=== PATIENT | female | born 1995 | race Hispanic/Latino ===

== ENCOUNTER 2018-08-09 09:27 | Emergency (ER) | payer BC, MEDICAID ==
--- NOTE | 2018-08-09 10:53 | Emergency Department Report ---
ED General Adult HPI - General Chief complaint: Syncope Stated complaint: SYNCOPE x3 Time Seen by Provider: 08/09/18 09:56 Source: patient Mode of arrival: Ambulatory Limitations: No Limitations - History of Present Illness Initial comments: Patient presents to the emergency department after having a syncopal episode. Patient states that she recently had a baby 8 weeks ago and has not been taking care of herself as needed especially when it comes to eating and drinking. Patient states she's had syncopal episodes in the past. Patient denies chest pain prior to or after her syncopal episodes. Patient was chest pain, shortness breath, or headache. -: Sudden Severity scale (0 -10): 0 Consistency: now resolved Improves with: none Worsens with: none Associated Symptoms: denies other symptoms Treatments Prior to Arrival: none - Related Data Home Medications Medication Instructions Recorded Confirmed Last Taken Tablet 1 tab PO DAILY 09/30/14 11/01/14 10/04/14 10:30 1 tab Previous Rx's Medication Instructions Recorded Last Taken Type Ferrous Sulfate [Feosol 325 MG tab] 325 mg PO BID #60 tablet 11/03/14 Unknown Rx Ibuprofen [Motrin 800 MG tab] 800 mg PO Q6H PRN #30 tablet 11/03/14 Unknown Rx Allergies Allergy/AdvReac Type Severity Reaction Status Date / Time No Known Allergies Allergy Verified 07/29/14 11:30 ED Review of Systems ROS: Stated complaint: SYNCOPE x3 Other details as noted in HPI Comment: All other systems reviewed and negative Constitutional: denies: chills, fever Eyes: denies: eye pain, eye discharge, vision change ENT: denies: ear pain, throat pain Respiratory: denies: cough, shortness of breath, wheezing Cardiovascular: denies: chest pain, palpitations Endocrine: no symptoms reported Gastrointestinal: denies: abdominal pain, nausea, diarrhea Genitourinary: denies: urgency, dysuria, discharge Musculoskeletal: denies: back pain, joint swelling, arthralgia Skin: denies: rash, lesions Neurological: denies: headache, weakness, paresthesias Psychiatric: denies: anxiety, depression Hematological/Lymphatic: denies: easy bleeding, easy bruising ED Past Medical Hx - Past Medical History Hx Hypertension: No Hx Heart Attack/AMI: No Hx Congestive Heart Failure: No Hx Diabetes: No Hx Deep Vein Thrombosis: No Hx Renal Disease: No Hx Sickle Cell Disease: No Hx Seizures: No Hx Asthma: No Hx COPD: No Hx HIV: No - Surgical History Past Surgical History?: No - Social History Smoking Status: Never Smoker Substance Use Type: None - Medications Home Medications: Home Medications Medication Instructions Recorded Confirmed Last Taken Type Tablet 1 tab PO DAILY 09/30/14 11/01/14 10/04/14 10:30 History 1 tab Ferrous Sulfate [Feosol 325 MG tab] 325 mg PO BID #60 tablet 11/03/14 Unknown Rx Ibuprofen [Motrin 800 MG tab] 800 mg PO Q6H PRN #30 tablet 11/03/14 Unknown Rx ED Physical Exam - General Limitations: No Limitations General appearance: alert, in no apparent distress - Head Head exam: Present: atraumatic, normocephalic - Eye Eye exam: Present: normal appearance, PERRL, EOMI - ENT ENT exam: Present: mucous membranes dry - Neck Neck exam: Present: normal inspection - Respiratory Respiratory exam: Present: normal lung sounds bilaterally. Absent: respiratory distress, wheezes, rales, rhonchi - Cardiovascular Cardiovascular Exam: Present: regular rate, normal rhythm. Absent: systolic murmur, diastolic murmur, rubs, gallop - GI/Abdominal GI/Abdominal exam: Present: soft, normal bowel sounds. Absent: distended, tenderness - Extremities Exam Extremities exam: Present: normal inspection - Back Exam Back exam: Present: normal inspection - Neurological Exam Neurological exam: Present: alert, oriented X3, CN II-XII intact. Absent: motor sensory deficit - Psychiatric Psychiatric exam: Present: normal affect, normal mood - Skin Skin exam: Present: warm, dry, intact, normal color. Absent: rash ED Course Vital Signs 08/09/18 08/09/18 09:31 13:07 Temperature 98.5 F Pulse Rate 63 81 Respiratory 16 16 Rate Blood Pressure 119/83 126/74 [Left] O2 Sat by Pulse 100 96 Oximetry ED Medical Decision Making - Lab Data Result diagrams: 08/09/18 10:45 08/09/18 10:45 Lab Results 08/09/18 08/09/18 08/09/18 Range/Units 10:45 10:45 10:45 WBC 7.2 (4.5-11.0) K/mm3 RBC 4.76 (3.65-5.03) M/mm3 Hgb 12.5 (10.1-14.3) gm/dl Hct 37.7 (30.3-42.9) % MCV 79 (79-97) fl MCH 26 L (28-32) pg MCHC 33 (30-34) % RDW 20.7 H (13.2-15.2) % Plt Count 273 (140-440) K/mm3 Lymph % (Auto) 25.5 (13.4-35.0) % [place] % (Auto) 8.5 H (0.0-7.3) % Eos % (Auto) 1.9 (0.0-4.3) % Baso % (Auto) 0.6 (0.0-1.8) % Lymph # 1.8 (1.2-5.4) K/mm3 [place] # 0.6 (0.0-0.8) K/mm3 Eos # 0.1 (0.0-0.4) K/mm3 Baso # 0.0 (0.0-0.1) K/mm3 Seg Neutrophils % 63.5 (40.0-70.0) % Seg Neutrophils # 4.6 (1.8-7.7) K/mm3 Sodium 142 (137-145) mmol/L Potassium 4.5 (3.6-5.0) mmol/L Chloride 106.5 (98-107) mmol/L Carbon Dioxide 26 (22-30) mmol/L Anion Gap 14 mmol/L BUN 7 (7-17) mg/dL Creatinine 0.9 (0.7-1.2) mg/dL Estimated GFR > 60 ml/min BUN/Creatinine Ratio 8 % Glucose 88 (65-100) mg/dL Calcium 9.2 (8.4-10.2) mg/dL Total Bilirubin 0.60 (0.1-1.2) mg/dL AST 13 (5-40) units/L ALT 13 (7-56) units/L Alkaline Phosphatase 80 (35-129) units/L Total Protein 7.0 (6.3-8.2) g/dL Albumin 4.2 (3.9-5) g/dL Albumin/Globulin Ratio 1.5 % HCG, Qual Negative (Negative) - EKG Data -: EKG Interpreted by [place] EKG shows normal: sinus rhythm Rate: normal - Radiology Data Radiology results: report reviewed - Medical Decision Making Discussed results with the patient and his spouse Urinalysis discussed and the patient politely declined Critical care attestation.: If time is entered above; I have spent that time in minutes in the direct care of this critically ill patient, excluding procedure time. ED Disposition Clinical Impression: Syncope Disposition: DC-01 TO HOME OR SELFCARE Is pt being admited?: No Does the pt Need Aspirin: No Condition: Stable Instructions: Syncope (ED) Additional Instructions: return if worse Referrals: ELISE VÁSQUEZ MD [Primary Care Provider] - 3-5 Days [facility] [Provider Group] - 3-5 Days [facility] [Provider Group] - 3-5 Days [facility] [Outside] - 3-5 Days Time of Disposition: 13:21
[2018-08-09 10:56] LABS: Basophils % (Auto) 0.6 % (0.0-1.8); Eosinophils # (Auto) 0.1 K/mm3 (0.0-0.4); Eosinophils % (Auto) 1.9 % (0.0-4.3); Hematocrit 37.7 % (30.3-42.9); Hemoglobin 12.5 gm/dl (10.1-14.3); Lymphocytes # (Auto) 1.8 K/mm3 (1.2-5.4); Lymphocytes % (Auto) 25.5 % (13.4-35.0); Mean Corpuscular HGB Conc 33 % (30-34); Mean Corpuscular Volume 79 fl (79-97); Monocytes # (Auto) 0.6 K/mm3 (0.0-0.8); Monocytes % (Auto) 8.5 % (0.0-7.3); Platelet Count 273 K/mm3 (140-440); Red Blood Count 4.76 M/mm3 (3.65-5.03); Red Cell Distribution Width 20.7 % (13.2-15.2)
[2018-08-09 11:19] LABS: Alanine Aminotransferase 13 units/L (7-56); Albumin 4.2 g/dL (3.9-5); BUN/Creatinine Ratio 8; Blood Urea Nitrogen 7 mg/dL (7-17); Calcium 9.2 mg/dL (8.4-10.2); Hemolysis Index 4
--- NOTE | 2018-08-09 12:02 | XRay Report ---
AP CHEST :08/09/18 09:27:00 CLINICAL: Syncope COMPARISON:None. FINDINGS: Normal heart and pulmonary vasculature. The lungs are normally expanded and clear. The bones and soft tissues are normal. IMPRESSION: Normal chest.
--- NOTE | 2018-08-09 12:34 | Cat Scan Report ---
PROCEDURE: CT HEAD/BRAIN WO CON TECHNIQUE: A noncontrast CT of the head was performed. HISTORY: syncope COMPARISON: None FINDINGS: There is no acute intracranial hemorrhage. There is no brain edema, mass effect or midline shift. Ventricular size is appropriate for brain volume. There is no abnormal extra-axial fluid collections. There is no skull fracture seen. The visualized paranasal sinuses are clear. IMPRESSION: There is no acute intracranial abnormality seen. This document is electronically signed by Ioana Gamble MD., August 09 2018 12:32:13 PM ET
[2018-08-09] MEDS ORDERED: NACL 0.9% 1000 ML 1,000 ML IV ONE (12:54)
[2018-08-09 13:07] VITALS: BP 126/74
== END 2018-08-09 14:06 | disposition home or self-care (01) ==
LOC: ED 09:27
DX: R55 Syncope and collapse (principal)
CPT/HCPCS: 36415; 70450; 71045; 80053; 84703; 85025; 93005; 93010; 96360; 99284; J7030

== ENCOUNTER 2018-08-21 13:43 | Emergency (ER) | payer MEDICAID ==
--- NOTE | 2018-08-21 14:15 | Emergency Department Report ---
Chief Complaint: Psych Stated Complaint: EVAL Time Seen by Provider: 08/21/18 14:12 - HPI History of Present Illness: pt presents for medical clearance has plan to go to [facility] denies SI, HI no hallucinations hx of depression (+) alcohol use, states at times she drinks a 12 pack of beer in sitting last drank ETOH last night (+) cigarettes (+) cocaine last used 5 days ago, marijuana 2 days ago PMHx of anemia, panic attacks, PTSD, bipolar MSE screening note: Focused history performed. Due to findings the following was ordered: psych protocol ED Disposition for MSE Condition: Stable
[2018-08-21 14:43] LABS: Basophils % (Auto) 0.5 % (0.0-1.8); Eosinophils # (Auto) 0.1 K/mm3 (0.0-0.4); Eosinophils % (Auto) 2.2 % (0.0-4.3); Hematocrit 40.8 % (30.3-42.9); Hemoglobin 13.7 gm/dl (10.1-14.3); Lymphocytes # (Auto) 1.7 K/mm3 (1.2-5.4); Lymphocytes % (Auto) 27.5 % (13.4-35.0); Mean Corpuscular HGB Conc 34 % (30-34); Mean Corpuscular Volume 80 fl (79-97); Monocytes # (Auto) 0.6 K/mm3 (0.0-0.8); Monocytes % (Auto) 9.9 % (0.0-7.3); Platelet Count 272 K/mm3 (140-440)
[2018-08-21 15:08] LABS: Alanine Aminotransferase 10 units/L (7-56); Albumin 4.7 g/dL (3.9-5); BUN/Creatinine Ratio 11; Blood Urea Nitrogen 8 mg/dL (7-17); Calcium 9.3 mg/dL (8.4-10.2); Hemolysis Index 4
[2018-08-21 15:59] LABS: Bilirubin,Urine NEG (Negative); Blood,Urine NEG (Negative); Color,Urine Yellow (Yellow); Mucus,Urine 1+ /HPF; Protein,Urine <15 mg/dL mg/dL (Negative); Urobilinogen,Urine < 2.0 mg/dL (<2.0)
--- NOTE | 2018-08-21 16:20 | Emergency Department Report ---
ED Medical Clearance HPI - General Chief complaint: Psych Stated complaint: EVAL Time Seen by Provider: 08/21/18 14:12 Source: patient Mode of arrival: Ambulatory Limitations: No Limitations - History of Present Illness Initial comments: This is a 22-year-old female presents to the emergency room for medical clearance to be receptive to [facility]. Patient states she went over to [facility] today and told to report to the emergency room for medical clearance. Patient states she needs detox for cocaine and alcohol. Patient states she used cocaine for 4-6 days last use last night and talk alcohol. She also reports depression. She denies suicidal ideation and homicidal ideation. Complaint: medical clearance request Onset/Timin -: days(s) Reason for Medical Clearance: intoxication Place: home Alledged Intoxication: No Traumatic Symptoms: denies traumatic injury Associated Symptoms: denies: chest pain, shortness of breath, palpitations, diaphoresis, denies other symptoms, confusion, cough, fever/chills, headaches, anorexia, malaise, nausea/vomiting, rash, seizure, syncope, weakness Treatments Prior to Arrival: none Home medications: Home Medications Medication Instructions Recorded Confirmed Last Taken Tablet 1 tab PO DAILY 09/30/14 11/01/14 10/04/14 10:30 1 tab Previous Rx's Medication Instructions Recorded Last Taken Type Ferrous Sulfate [Feosol 325 MG tab] 325 mg PO BID #60 tablet 11/03/14 Unknown Rx Ibuprofen [Motrin 800 MG tab] 800 mg PO Q6H PRN #30 tablet 11/03/14 Unknown Rx Sulfamethoxazole/Trimethoprim 1 each PO BID #6 tablet 08/21/18 Unknown Rx [Bactrim DS TAB] Allergies/Adverse reactions: Allergies Allergy/AdvReac Type Severity Reaction Status Date / Time No Known Allergies Allergy Verified 08/21/18 13:44 ED Review of Systems ROS: Stated complaint: EVAL Other details as noted in HPI Constitutional: denies: chills, fever Respiratory: denies: cough, shortness of breath, wheezing Cardiovascular: denies: chest pain, palpitations Gastrointestinal: denies: abdominal pain, nausea, diarrhea Skin: denies: rash, lesions Neurological: denies: headache, weakness, paresthesias Psychiatric: denies: anxiety, depression ED Past Medical Hx - Past Medical History Hx Hypertension: No Hx Heart Attack/AMI: No Hx Congestive Heart Failure: No Hx Diabetes: No Hx Deep Vein Thrombosis: No Hx Renal Disease: No Hx Sickle Cell Disease: No Hx Seizures: No Hx Psychiatric Treatment: Yes (bipolar, panic attack, PTSD,alcohol abuse) Hx Asthma: No Hx COPD: No Hx HIV: No - Surgical History Past Surgical History?: No - Social History Smoking Status: Current Every Day Smoker Substance Use Type: Alcohol, Cocaine, Marijuana, Other - Medications Home Medications: Home Medications Medication Instructions Recorded Confirmed Last Taken Type Tablet 1 tab PO DAILY 09/30/14 11/01/14 10/04/14 10:30 History 1 tab Ferrous Sulfate [Feosol 325 MG tab] 325 mg PO BID #60 tablet 11/03/14 Unknown Rx Ibuprofen [Motrin 800 MG tab] 800 mg PO Q6H PRN #30 tablet 11/03/14 Unknown Rx Sulfamethoxazole/Trimethoprim 1 each PO BID #6 tablet 08/21/18 Unknown Rx [Bactrim DS TAB] ED Physical Exam - General Limitations: No Limitations General appearance: alert, in no apparent distress - Respiratory Respiratory exam: Present: normal lung sounds bilaterally. Absent: respiratory distress - Cardiovascular Cardiovascular Exam: Present: regular rate, normal rhythm. Absent: systolic murmur, diastolic murmur, rubs, gallop - GI/Abdominal GI/Abdominal exam: Present: soft, normal bowel sounds. Absent: distended, tenderness, guarding, rebound, rigid - Back Exam Back exam: Absent: CVA tenderness (R), CVA tenderness (L) - Neurological Exam Neurological exam: Present: alert, oriented X3 - Psychiatric Psychiatric exam: Present: normal affect, normal mood - Skin Skin exam: Present: warm, dry, intact, normal color. Absent: rash ED Course Vital Signs 08/21/18 08/21/18 14:12 19:42 Temperature 98.1 F 98.4 F Pulse Rate 84 82 Respiratory 18 20 Rate Blood Pressure 126/85 Blood Pressure 127/77 [Left] O2 Sat by Pulse 98 98 Oximetry ED Medical Decision Making - Lab Data Result diagrams: 08/21/18 14:27 08/21/18 14:27 Lab Results 08/21/18 08/21/18 08/21/18 Range/Units 14:27 14:27 14:27 WBC 6.3 (4.5-11.0) K/mm3 RBC 5.10 H (3.65-5.03) M/mm3 Hgb 13.7 (10.1-14.3) gm/dl Hct 40.8 (30.3-42.9) % MCV 80 (79-97) fl MCH 27 L (28-32) pg MCHC 34 (30-34) % RDW 21.0 H (13.2-15.2) % Plt Count 272 (140-440) K/mm3 Lymph % (Auto) 27.5 (13.4-35.0) % [place] % (Auto) 9.9 H (0.0-7.3) % Eos % (Auto) 2.2 (0.0-4.3) % Baso % (Auto) 0.5 (0.0-1.8) % Lymph # 1.7 (1.2-5.4) K/mm3 [place] # 0.6 (0.0-0.8) K/mm3 Eos # 0.1 (0.0-0.4) K/mm3 Baso # 0.0 (0.0-0.1) K/mm3 Seg Neutrophils % 59.9 (40.0-70.0) % Seg Neutrophils # 3.8 (1.8-7.7) K/mm3 Sodium 140 (137-145) mmol/L Potassium 3.9 (3.6-5.0) mmol/L Chloride 103.4 (98-107) mmol/L Carbon Dioxide 23 (22-30) mmol/L Anion Gap 18 mmol/L BUN 8 (7-17) mg/dL Creatinine 0.7 (0.7-1.2) mg/dL Estimated GFR > 60 ml/min BUN/Creatinine Ratio 11 % Glucose 86 (65-100) mg/dL Calcium 9.3 (8.4-10.2) mg/dL Total Bilirubin 0.80 (0.1-1.2) mg/dL AST 12 (5-40) units/L ALT 10 (7-56) units/L Alkaline Phosphatase 76 (35-129) units/L Total Protein 7.8 (6.3-8.2) g/dL Albumin 4.7 (3.9-5) g/dL Albumin/Globulin Ratio 1.5 % HCG, Qual (Negative) Urine Color (Yellow) Urine Turbidity (Clear) Urine pH (5.0-7.0) Ur Specific [place] (1.003-1.030) Urine Protein (Negative) mg/dL Urine Glucose (UA) (Negative) mg/dL Urine Ketones (Negative) mg/dL Urine Blood (Negative) Urine Nitrite (Negative) Urine Bilirubin (Negative) Urine Urobilinogen (<2.0) mg/dL Ur Leukocyte Esterase (Negative) Urine WBC (Auto) (0.0-6.0) /HPF Urine RBC (Auto) (0.0-6.0) /HPF U Epithel Cells (Auto) (0-13.0) /HPF Urine Mucus /HPF Salicylates < 0.3 L (2.8-20.0) mg/dL Urine Opiates Screen Urine Methadone Screen Acetaminophen (10.0-30.0) ug/mL Ur Barbiturates Screen Ur Phencyclidine Scrn Ur Amphetamines Screen U Benzodiazepines Scrn Urine Cocaine Screen U Marijuana (THC) Screen Drugs of Abuse Note Plasma/Serum Alcohol (0-0.07) % 08/21/18 08/21/18 08/21/18 Range/Units 14:27 14:27 14:27 WBC (4.5-11.0) K/mm3 RBC (3.65-5.03) M/mm3 Hgb (10.1-14.3) gm/dl Hct (30.3-42.9) % MCV (79-97) fl MCH (28-32) pg MCHC (30-34) % RDW (13.2-15.2) % Plt Count (140-440) K/mm3 Lymph % (Auto) (13.4-35.0) % [place] % (Auto) (0.0-7.3) % Eos % (Auto) (0.0-4.3) % Baso % (Auto) (0.0-1.8) % Lymph # (1.2-5.4) K/mm3 [place] # (0.0-0.8) K/mm3 Eos # (0.0-0.4) K/mm3 Baso # (0.0-0.1) K/mm3 Seg Neutrophils % (40.0-70.0) % Seg Neutrophils # (1.8-7.7) K/mm3 Sodium (137-145) mmol/L Potassium (3.6-5.0) mmol/L Chloride (98-107) mmol/L Carbon Dioxide (22-30) mmol/L Anion Gap mmol/L BUN (7-17) mg/dL Creatinine (0.7-1.2) mg/dL Estimated GFR ml/min BUN/Creatinine Ratio % Glucose (65-100) mg/dL Calcium (8.4-10.2) mg/dL Total Bilirubin (0.1-1.2) mg/dL AST (5-40) units/L ALT (7-56) units/L Alkaline Phosphatase (35-129) units/L Total Protein (6.3-8.2) g/dL Albumin (3.9-5) g/dL Albumin/Globulin Ratio % HCG, Qual Negative (Negative) Urine Color (Yellow) Urine Turbidity (Clear) Urine pH (5.0-7.0) Ur Specific [place] (1.003-1.030) Urine Protein (Negative) mg/dL Urine Glucose (UA) (Negative) mg/dL Urine Ketones (Negative) mg/dL Urine Blood (Negative) Urine Nitrite (Negative) Urine Bilirubin (Negative) Urine Urobilinogen (<2.0) mg/dL Ur Leukocyte Esterase (Negative) Urine WBC (Auto) (0.0-6.0) /HPF Urine RBC (Auto) (0.0-6.0) /HPF U Epithel Cells (Auto) (0-13.0) /HPF Urine Mucus /HPF Salicylates (2.8-20.0) mg/dL Urine Opiates Screen Urine Methadone Screen Acetaminophen < 5.0 L (10.0-30.0) ug/mL Ur Barbiturates Screen Ur Phencyclidine Scrn Ur Amphetamines Screen U Benzodiazepines Scrn Urine Cocaine Screen U Marijuana (THC) Screen Drugs of Abuse Note Plasma/Serum Alcohol < 0.01 (0-0.07) % 08/21/18 08/21/18 Range/Units 15:37 15:37 WBC (4.5-11.0) K/mm3 RBC (3.65-5.03) M/mm3 Hgb (10.1-14.3) gm/dl Hct (30.3-42.9) % MCV (79-97) fl MCH (28-32) pg MCHC (30-34) % RDW (13.2-15.2) % Plt Count (140-440) K/mm3 Lymph % (Auto) (13.4-35.0) % [place] % (Auto) (0.0-7.3) % Eos % (Auto) (0.0-4.3) % Baso % (Auto) (0.0-1.8) % Lymph # (1.2-5.4) K/mm3 [place] # (0.0-0.8) K/mm3 Eos # (0.0-0.4) K/mm3 Baso # (0.0-0.1) K/mm3 Seg Neutrophils % (40.0-70.0) % Seg Neutrophils # (1.8-7.7) K/mm3 Sodium (137-145) mmol/L Potassium (3.6-5.0) mmol/L Chloride (98-107) mmol/L Carbon Dioxide (22-30) mmol/L Anion Gap mmol/L BUN (7-17) mg/dL Creatinine (0.7-1.2) mg/dL Estimated GFR ml/min BUN/Creatinine Ratio % Glucose (65-100) mg/dL Calcium (8.4-10.2) mg/dL Total Bilirubin (0.1-1.2) mg/dL AST (5-40) units/L ALT (7-56) units/L Alkaline Phosphatase (35-129) units/L Total Protein (6.3-8.2) g/dL Albumin (3.9-5) g/dL Albumin/Globulin Ratio % HCG, Qual (Negative) Urine Color Yellow (Yellow) Urine Turbidity Clear (Clear) Urine pH 5.0 (5.0-7.0) Ur Specific [place] 1.018 (1.003-1.030) Urine Protein <15 mg/dl (Negative) mg/dL Urine Glucose (UA) Neg (Negative) mg/dL Urine Ketones Neg (Negative) mg/dL Urine Blood Neg (Negative) Urine Nitrite Pos (Negative) Urine Bilirubin Neg (Negative) Urine Urobilinogen < 2.0 (<2.0) mg/dL Ur Leukocyte Esterase Sm (Negative) Urine WBC (Auto) 18.0 H (0.0-6.0) /HPF Urine RBC (Auto) 4.0 (0.0-6.0) /HPF U Epithel Cells (Auto) < 1.0 (0-13.0) /HPF Urine Mucus 1+ /HPF Salicylates (2.8-20.0) mg/dL Urine Opiates Screen Presumptive negative Urine Methadone Screen Presumptive negative Acetaminophen (10.0-30.0) ug/mL Ur Barbiturates Screen Presumptive negative Ur Phencyclidine Scrn Presumptive negative Ur Amphetamines Screen Presumptive negative U Benzodiazepines Scrn Presumptive negative Urine Cocaine Screen Presumptive positive U Marijuana (THC) Screen Presumptive positive Drugs of Abuse Note Disclamer Plasma/Serum Alcohol (0-0.07) % - Medical Decision Making Patient was examined by me. Vitals are normal and patient is in no acute distress. Obtained labs. Consulted mental health for medical clearance to [facility]. Urinalysis positive for acute cystitis, urine drug screen positive for cocaine and marijuana. Patient given Bactrim DS 1 tablet while in ER. She will be started on Bactrim DS for acute cystitis. Patient is medically clear per Mental Health to be admitted to [facility] for detox. Plan discussed with patient to discharge home and treat outpatient. He agrees with ER plan. Patient discharged home in stable condition. Follow up with PCP in 2-3 d ays. ED Disposition Clinical Impression: Polysubstance abuse Acute cystitis Qualifiers: Hematuria presence: without hematuria Qualified Code(s): N30.00 - Acute cystitis without hematuria Disposition: TO HOME OR SELFCARE Is pt being admited?: No Does the pt Need Aspirin: No Condition: Stable Instructions: Urinary Tract Infection in Women (ED), Polysubstance Abuse (ED) Additional Instructions: Discharge follow-[facility] at [facility]. Increase fluid intake to 1L to 2L daily. Complete full course of antibiotics as prescribed. Avoid drinking alcohol while taking antibiotics and for 24 hours after completion. Follow up with primary care provider in 2-3 days. Prescriptions: Sulfamethoxazole/Trimethoprim [Bactrim DS TAB] 1 each PO BID #6 tablet Referrals: KATLYN MARR MD [Primary Care Provider] - 3-5 Days [facility] [Outside] - 3-5 Days [facility] Espino [Other] - 3-5 Days
[2018-08-21 16:29] LABS: Amphetamine Screen,Urine PRESUMPTIVE NEGATIVE; Benzodiazepines Screen,Urine PRESUMPTIVE NEGATIVE; Methadone Screen,Urine PRESUMPTIVE NEGATIVE; Opiate Screen,Urine PRESUMPTIVE NEGATIVE
[2018-08-21 16:47] LABS: Cannabinoid Screen,Urine PRESUMPTIVE POSITIVE; Cocaine Screen,Urine PRESUMPTIVE POSITIVE
[2018-08-21] MEDS ORDERED: BACTRIM DS PO ONE (17:25)
[2018-08-21 19:44] VITALS: BP 127/77
[2018-08-22] MEDS ORDERED: XYLOCAINE 1%/ EPI 1:100,000 INFILTRATI ONE (11:25)
== END 2018-08-21 19:48 | disposition home or self-care (01) ==
LOC: ED 13:43
DX: F14.10 Cocaine abuse, uncomplicated (principal); N30.00 Acute cystitis without hematuria; F12.10 Cannabis abuse, uncomplicated; F10.10 Alcohol abuse, uncomplicated
CPT/HCPCS: 36415; 80053; 80307; 81001; 84703; 85025; 99284; G0480; 80320

== ENCOUNTER 2020-07-14 15:28 | Outpatient (CLI) | payer MEDICAID ==
[2020-07-14] MEDS ORDERED: LACTATED RINGERS 1,000 ML IV SCH (15:45)
[2020-07-14 15:54] VITALS: BP 112/63
[2020-07-14 16:11] LABS: Bilirubin,Urine NEG (Negative); Blood,Urine NEG (Negative); Color,Urine Colorless (Yellow); Protein,Urine <15 mg/dL mg/dL (Negative); Urobilinogen,Urine < 2.0 mg/dL (<2.0)
[2020-07-14 16:16] LABS: WBC,Urine < 1.0 /HPF (0.0-6.0)
[2020-07-14] MEDS ORDERED: ACETAMINOPHEN 500 MG TAB PO ONE (17:33)
--- NOTE | 2020-07-14 18:42 | Ultrasound Report ---
US OB limited INDICATION / CLINICAL INFORMATION: placenta scan. COMPARISON: None available. FINDINGS: A single live fetus is seen in cephalic presentation with heart rate of 150. The placenta is an terior, to the left, grade 1 and without separation. Cervical length is 4.9 cm IMPRESSION: Single live fetus in cephalic presentation with heart rate of 150. The placenta shows no signs of separation. Cervical length is 4.9 cm Signer Name: Aashish Uribe MD FACR Signed: 07/14/2020 6:37 PM Workstation Name: [id number]
== END 2020-07-14 17:56 | disposition home or self-care (01) ==
LOC: TRG 15:28 → APU 15:30 → TRG 17:56
PROVIDERS: ATTEND Obstetrics & Gynecology
DX: O26.892 Other specified pregnancy related conditions, second trimester (principal); Z3A.21 21 weeks gestation of pregnancy
CPT/HCPCS: 59025; 76815; 81001; 85460

== ENCOUNTER 2020-08-15 13:02 | Inpatient (IN) | payer MEDICAID ==
[2020-08-15 14:19] LABS: Bilirubin,Urine NEG (Negative); Blood,Urine NEG (Negative); Color,Urine Straw (Yellow); Mucus,Urine FEW /HPF; Protein,Urine <15 mg/dL mg/dL (Negative); RBC,Urine < 1.0 /HPF (0.0-6.0); Urobilinogen,Urine < 2.0 mg/dL (<2.0)
[2020-08-15 14:21] LABS: WBC,Urine < 1.0 /HPF (0.0-6.0)
[2020-08-15] MEDS ORDERED: TERBUTALINE 1 MG/1 ML INJ SUB-Q ONE (14:26)
[2020-08-15] MEDS ORDERED: LACTATED RINGERS 500 ML IV ONE (14:53)
[2020-08-15] MEDS ORDERED: LACTATED RINGERS 1,000 ML IV ONE ×2 (14:56→15:02)
[2020-08-15] MEDS ORDERED: ACETAMINOPHEN 500 MG TAB PO ONE (14:56)
[2020-08-15] MEDS ORDERED: TERBUTALINE 1 MG/1 ML INJ SUB-Q NR (15:02)
[2020-08-15 15:03] LABS: Basophils % (Auto) 0.4 % (0.0-1.8); Eosinophils # (Auto) 0.1 K/mm3 (0.0-0.4); Hematocrit 32.1 % (30.3-42.9); Hemoglobin 11.2 gm/dl (10.1-14.3); Lymphocytes # (Auto) 1.7 K/mm3 (1.2-5.4); Lymphocytes % (Auto) 14.7 % (13.4-35.0); Mean Corpuscular HGB Conc 35 % (30-34); Mean Corpuscular Volume 89 fl (79-97); Monocytes # (Auto) 0.7 K/mm3 (0.0-0.8); Monocytes % (Auto) 6.1 % (0.0-7.3); Platelet Count 212 K/mm3 (140-440); Red Blood Count 3.61 M/mm3 (3.65-5.03); Red Cell Distribution Width 13.5 % (13.2-15.2)
[2020-08-15] MEDS ORDERED: DOCUSATE SODIUM 100 MG CAP PO PRN (17:30)
[2020-08-15] MEDS ORDERED: ONDANSETRON 4 MG/2 ML INJ IV PRN (17:30)
[2020-08-15] MEDS ORDERED: diphenhydrAMINE 25 MG CAP PO PRN ×2 (17:30→20:15)
[2020-08-15] MEDS ORDERED: ALUM-MAG HYDROXIDE-SIMETHICONE 200-200-20MG/5ML ORAL LIQD 30 ML PO PRN (17:30)
[2020-08-15] MEDS ORDERED: LACTATED RINGERS 1,000 ML IV SCH (17:30)
[2020-08-15] MEDS ORDERED: MAGNESIUM HYDROXIDE (MOM) ORAL LIQD UDC PO PRN (17:30)
[2020-08-15] MEDS ORDERED: ACETAMINOPHEN 500 MG TAB PO PRN (17:30)
--- NOTE | 2020-08-15 17:43 | History and Physical Report ---
History of Present Illness Date of examination: 08/15/20 (Lower abdominal pain) Date of admission: 08/15/2020 Chief complaint: Lower back and abdominal pain. History of present illness: Pt is a 24 y.o. @ 25.2 wks who presented to triage with c/o lower back and abdominal pain. EDC Confirmation: 11/26/2020 Gestational Age: 25.2 weeks on admission Past History : 3 Term Births: 2 Premature Births: 0 Living Children: 2 Para: 2 Mult. Births: 0 Prev : 0 Aborta: 0 Elect. Ab: 0 Spont. Ab: 0 Ectopics: 0 # 1 Delivery date: 11/01/2014 Weeks Gestation: 39 Delivery type: Vaginal Hours of labor: 10 Anesthesia type: epidural Delivery location: [facility] Infant Sex: male weight: 6.56 Name: Yohan # 2 Delivery date: 2017 Weeks Gestation: 37 labor: no Delivery type: Anesthesia type: epidural Delivery location: [facility] Sex: Female weight: 7-10 Past Medical History: Reviewed history from 04/23/2014 and no changes required: Seizures: Diagnosed 2019 Past Surgical History: Reviewed history from 04/23/2014 and no changes required: negative Past Medical History Anesthesia Complications: negative Anemia: negative Autoimmune Disorder: negative Bleeding Disorder: negative Blood Transfusions: negative Breast Disease: negative Diabetes: negative Heart Disease: negative Hypertension: negative Hepatitis/Liver Disease: negative Kidney Disease/UTI: negative Neurologic/Epilepsy/Migraines: positive, Seizures Phlebitis/Varicosities: negative Psychiatric: negative Pulmonary Disease/Asthma: negative Thyroid Disease: negative Hospitalizations: negative Surgery (Non-grant coordinator): negative Abnormal PAP: negative KERRY Exposure: negative Infertility: negative Uterine Anomaly: negative Uterine Surgery (not C/S): negative Other Gynecologic Problems: negative Social Hx: Patient is single Student Smoking History: Patient has never smoked. Infection History Hx of STD: none HIV Risk Eval: no Hepatitis B Risk Eval: low risk Personal hx. of genital herpes: no Partner hx. of genital herpes: no Rash, Viral, or Febrile illness since last LMP? no Varicella/Chicken Pox Status: Immunized TB Risk: no Genetic History Congenital Heart Defect: Mom: no Dad: no Desiree Disease: Mom: no Dad: no Thalassemia Mom: no Dad: no Neural Tube Defect Mom: no Dad: no Down's Syndrome Mom: no Dad: no Andrew-Sachs Mom: no Dad: no Sickle Cell Disease/Trait Mom: no Dad: no Hemophilia Mom: no Dad: no Muscular Dystrophy Mom: no Dad: no Cystic Fibrosis Mom: no Dad: no Rossana Chorea Mom: no Dad: no Mental Retardation Mom: no Dad: no Fragile X Mom: no Dad: no Other Genetic/Chromosomal Disorder Mom: no Dad: no Child w/other defect Mom: no Dad: no Enviromental Exposures Xray Exposure: no Medication, drug, or alcohol use since LMP: yes Chemical/Other Exposure: no Exposure to Cat Liter: yes Hx of Parvovirus (Fifth Disease): no Occupational Exposure to Children: none Current Allergies: No known allergies Past History Past Medical History: seizure (Last seziure Apr 2020) Past Surgical History: no surgical history 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) Family/Genetic History: none Social history: no significant social history - Obstetrical History : 3 Para: 2 Hx # Term Pregnancies: 2 Number of Pregnancies: 0 Spontaneous Abortions: 0 Induced : 0 Number of Living Children: 2 Medications and Allergies Allergies Allergy/AdvReac Type Severity Reaction Status Date / Time No Known Allergies Allergy Verified 08/21/18 13:44 Home Medications Medication Instructions Recorded Confirmed Last Taken Type Tablet 1 tab PO DAILY 09/30/14 11/01/14 10/04/14 10:30 History 1 tab Ferrous Sulfate [Feosol 325 MG tab] 325 mg PO BID #60 tablet 11/03/14 Unknown Rx Ibuprofen [Motrin 800 MG tab] 800 mg PO Q6H PRN #30 tablet 11/03/14 Unknown Rx Sulfamethoxazole/Trimethoprim 1 each PO BID #6 tablet 08/21/18 Unknown Rx [Bactrim DS TAB] Active Meds: Active Medications Acetaminophen (Acetaminophen 325 Mg Tab) 1,000 mg PO Q6H PRN PRN Reason: Pain MILD(1-3)/Fever >100.5/LINDER Al Hydrox/Mg Hydrox/Simethicone (Alum-Mag Hydroxide-Simethicone 040-735-37sf/5ml Oral Liqd 30 Ml) 30 ml PO Q6H PRN PRN Reason: Indigestion Betamethasone Acet/Betameth SodPhos (Betamet Acet/Betamet Na Ph 6 Mg/Ml Inj 5 Ml Mdv) 12 mg IM Q24HR TATY Stop: 08/16/20 10:01 Diphenhydramine HCl (Diphenhydramine 25 Mg Cap) 25 mg PO Q6H PRN PRN Reason: Itching Docusate Sodium (Docusate Sodium 100 Mg Cap) 100 mg PO Q12H PRN PRN Reason: Constipation Lactated Ringer's (Lactated Ringers) 1,000 mls @ 125 mls/hr IV DIRECT TATY Magnesium Hydroxide (Magnesium Hydroxide (Mom) Oral Liqd Udc) 30 ml PO QHS PRN PRN Reason: Laxative Effect Multivitamins/Iron/Calcium ( [id number]-Ut Fumarate-Folic Acid Vit Tab) 1 each PO QDAY TATY Ondansetron HCl (Ondansetron 4 Mg/2 Ml Inj) 4 mg IV Q6H PRN PRN Reason: Nausea And Vomiting Terbutaline Sulfate (Terbutaline 1 Mg/1 Ml Inj) 0.25 mg SUB-Q ONCE NR Stop: 08/15/20 20:00 Last Admin: 08/15/20 15:06 Dose: 0.25 mg Documented by: - Vital Signs Vital signs: Vital Signs Pulse BP 67 106/59 08/15/20 13:23 08/15/20 13:23 Temp Pulse Resp BP Pulse Ox 97.1 F L 93 H 14 109/58 99 08/15/20 13:29 08/15/20 17:41 08/15/20 13:29 08/15/20 17:35 08/15/20 17:41 EFM was initiated upon arrival to triage and pt was found to be gurvinder every 2 minutes. Pt received two liters of IV fluid and 2 doses of terbutaline with no resolution of contractions. Cervical exam: 0/-3. When monitor strip was reviewed, some of the contractions did not have the natural gradual rise and descend, but had sharp, abrupt rise and descent and looked square in shape. Upon entering room pt was laying in bed moaning. Went to bedside to palpate abdomen while patient states that she was having a contraction and noticed that the patient was doing a valsalva maneuver during the "contraction". I had the patient relax and breath slowly during the "contraction" and noticed that her abdomen immediately relaxed. The "contraction" only lasted as long as she was doing the valsalva maneuver. At that time, I discussed with the patient that clinically, although she was having some contractions, I do not believe that she is in labor at this time based on the contraction pattern on the monitor strip and her cervix not being dilated. The patient then said " I had to have mag with my son. That was the only thing that stopped the contractions when I had this problem last time." I discussed with the patient magnesium would require her to have a juarez and she would not be able to eat with during administration. When I started to explain the side effects and risk with magnesium administration, pt stated "I'll do whatever I have to do to stop this pain" and would not listen any further. Consulted with Dr. Guthrie. Will admit to observation, order mag and steroids. Pt aware of the plan of care. 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 Admission labs drawn. HBsAg Screen Negative Negative *1 RPR Non Reactive Non Reactive *2 Rubella Antibodies, IgG 2.16 index Immune >0.99 *3 Non-immune <0.90 Equivocal 0.90 - 0.99 Immune >0.99 ABO Grouping O *4 Rh Factor Positive *5 Please note: Prior records for this patient's ABO / Rh type are not available for additional verification. Antibody Screen Negative Negative *6 Tests: (3) HIV Ag/Ab with Reflex (690617) HIV Screen 4th Generation wRfx Non Reactive Non Reactive *55 Tests: (4) HCV Antibody reflex to LILIBETH ([id number]) ! HCV Ab <0.1 s/co ratio 0.0-0.9 *56 Tests: (5) Interpretation: ([id number]) ! Interpretation: SPRCS *57 Negative Not infected with HCV, unless recent infection is suspected or other evidence exists to indicate HCV infection. Assessment and Plan A: 24 y.o. @ 25.2 weeks with labor, contractions. Cervical exam: 030/-3. - Patient Problems (1) labor Current Visit: No Status: Acute Qualifiers: labor trimester: second trimester labor delivery status: without delivery Qualified Code(s): O60.02 - labor without delivery, second trimester Plan to address problem: Admit to labor and delivery. Admission labs drawn. Magnesium infusion ordered. Juarez catheter during magnesium infusion. Monitor for labor progression. Clear liquid diet. (2) with 25 completed weeks gestation Current Visit: Yes Status: Acute Plan to address problem: Monitor status through EFM.
[2020-08-15] MEDS ORDERED: MAGNESIUM SULFATE 4 GM/100 ML BAG IV ONE (17:56)
[2020-08-15] MEDS ORDERED: BETAMET ACET/BETAMET NA PH 6 MG/ML INJ 5 ML MDV IM SCH (18:00)
--- NOTE | 2020-08-15 18:41 | Ultrasound Report ---
ULTRASOUND OBSTETRIC LIMITED INDICATION / CLINICAL INFORMATION: Evaluate for placental abruption and assess cervical length. COMPARISON: OB ultrasound performed on 07/14/2020. FINDINGS: AMNIOTIC FLUID INDEX (cm) = 15.3 PRESENTATION: Cephalic. HEART RATE (beats per minute): 155 ADDITIONAL FINDINGS: The placenta is in a fundal/left lateral location without evidence of abruption. Cervical length measures 3.4 cm. IMPRESSION: 1. Unremarkable sonographic appearance of the placenta. 2. Cervical length of 3.4 cm. Signer Name: Chandu Dixon MD Signed: 08/15/2020 6:36 PM Workstation Name: [id number]
[2020-08-15] MEDS: MAGNESIUM SULFATE 40GM/1000ML 40 GM/1,000 ML BAG IV SCH (19:12)
[2020-08-15] MEDS: dexAMETHasone 4 MG/ML VIAL IM SCH (20:09)
[2020-08-16] MEDS: dexAMETHasone 4 MG/ML VIAL IM SCH ×2 (07:55→20:42)
--- NOTE | 2020-08-16 08:05 | Progress Note ---
Assessment and Plan A: 25 weeks contractions, Magnesium and antepartum steroids for lung maturity. P: Continue Magnesium for 24 hours. 2nd dose of steroids due tonight. If cervix is unchanged will consider d/c home. - Patient Problems (1) with 25 completed weeks gestation Current Visit: Yes Status: Acute Subjective - Subjective Date of service: 08/16/20 Principal diagnosis: IUP @ 25 weeks Contractions Patient reports: movement normal, no new complaints, no loss of fluid, no vaginal bleeding Objective - Vital Signs Vital Signs: Vital Signs - 12hr 08/15/20 08/15/20 08/15/20 20:01 20:06 20:09 Pulse Rate 63 74 80 O2 Sat by Pulse 99 99 94 Oximetry 08/15/20 08/15/20 08/15/20 20:11 20:16 20:21 Pulse Rate 64 63 67 O2 Sat by Pulse 99 100 99 Oximetry 08/15/20 08/15/20 08/15/20 20:26 20:27 20:31 Pulse Rate 60 77 78 O2 Sat by Pulse 99 91 99 Oximetry 08/15/20 08/15/20 08/15/20 20:36 20:41 20:46 Pulse Rate 71 69 72 O2 Sat by Pulse 97 98 99 Oximetry 08/15/20 08/15/20 08/15/20 20:51 20:56 21:01 Pulse Rate 73 75 70 O2 Sat by Pulse 99 99 98 Oximetry 08/15/20 08/15/20 08/15/20 21:06 21:11 21:16 Pulse Rate 68 88 74 O2 Sat by Pulse 98 99 99 Oximetry 08/15/20 08/15/20 08/15/20 21:21 21:26 21:31 Pulse Rate 77 88 75 O2 Sat by Pulse 99 98 99 Oximetry 08/15/20 08/15/20 08/15/20 21:36 21:41 21:46 Pulse Rate 72 65 75 O2 Sat by Pulse 98 99 99 Oximetry 08/15/20 08/15/20 08/15/20 21:51 21:56 22:01 Pulse Rate 75 79 64 O2 Sat by Pulse 99 99 100 Oximetry 08/15/20 08/15/20 08/15/20 22:06 22:11 22:16 Pulse Rate 70 56 L 63 O2 Sat by Pulse 98 98 98 Oximetry 08/15/20 08/15/20 08/15/20 22:21 22:26 22:31 Pulse Rate 67 77 58 L O2 Sat by Pulse 97 97 98 Oximetry 08/15/20 08/15/20 08/15/20 22:36 22:41 22:46 Pulse Rate 63 56 L 70 O2 Sat by Pulse 99 98 98 Oximetry 08/15/20 08/15/20 08/15/20 22:51 22:56 23:01 Pulse Rate 72 69 74 O2 Sat by Pulse 98 99 97 Oximetry 08/15/20 08/15/20 08/15/20 23:06 23:11 23:16 Pulse Rate 65 60 65 O2 Sat by Pulse 97 96 98 Oximetry 08/15/20 08/15/20 08/15/20 23:21 23:26 23:31 Pulse Rate 59 L 64 73 O2 Sat by Pulse 97 97 97 Oximetry 08/15/20 08/15/20 08/15/20 23:36 23:41 23:42 Pulse Rate 63 71 89 O2 Sat by Pulse 97 97 86 Oximetry 08/15/20 08/15/20 08/15/20 23:46 23:51 23:56 Pulse Rate 82 73 67 O2 Sat by Pulse 98 97 97 Oximetry 08/16/20 08/16/20 08/16/20 00:01 00:06 00:11 Pulse Rate 67 82 85 O2 Sat by Pulse 98 97 98 Oximetry 08/16/20 08/16/20 08/16/20 00:16 00:21 00:26 Pulse Rate 82 63 90 O2 Sat by Pulse 98 98 97 Oximetry 08/16/20 08/16/20 08/16/20 00:31 00:36 00:41 Pulse Rate 58 L 59 L 70 O2 Sat by Pulse 97 97 98 Oximetry 08/16/20 08/16/20 08/16/20 00:46 00:51 00:56 Pulse Rate 71 63 66 O2 Sat by Pulse 98 97 97 Oximetry 08/16/20 08/16/20 08/16/20 01:01 01:06 01:11 Pulse Rate 63 59 L 63 O2 Sat by Pulse 97 98 97 Oximetry 08/16/20 08/16/20 08/16/20 01:16 01:19 01:21 Pulse Rate 75 89 O2 Sat by Pulse 98 72 L 98 Oximetry 08/16/20 08/16/20 08/16/20 01:26 01:31 01:36 Pulse Rate 93 H 86 67 O2 Sat by Pulse 98 98 99 Oximetry 08/16/20 08/16/20 08/16/20 01:41 01:46 01:51 Pulse Rate 92 H 89 67 O2 Sat by Pulse 98 97 97 Oximetry 08/16/20 08/16/20 08/16/20 01:56 02:01 02:06 Pulse Rate 76 64 63 O2 Sat by Pulse 97 97 97 Oximetry 08/16/20 08/16/20 08/16/20 02:11 02:16 02:21 Pulse Rate 73 75 71 O2 Sat by Pulse 98 97 97 Oximetry 08/16/20 08/16/20 08/16/20 02:26 02:31 02:36 Pulse Rate 59 L 67 84 O2 Sat by Pulse 97 97 98 Oximetry 08/16/20 08/16/20 08/16/20 02:41 02:46 02:51 Pulse Rate 75 73 63 O2 Sat by Pulse 98 99 99 Oximetry 08/16/20 08/16/20 08/16/20 02:56 03:01 03:06 Pulse Rate 84 58 L 60 O2 Sat by Pulse 97 97 97 Oximetry 08/16/20 08/16/20 08/16/20 03:11 03:16 03:21 Pulse Rate 64 74 74 O2 Sat by Pulse 97 97 97 Oximetry 08/16/20 08/16/20 08/16/20 03:26 03:31 03:36 Pulse Rate 77 61 60 O2 Sat by Pulse 96 97 97 Oximetry 08/16/20 08/16/20 08/16/20 03:41 03:46 03:51 Pulse Rate 59 L 98 H 64 O2 Sat by Pulse 97 96 98 Oximetry 08/16/20 08/16/20 08/16/20 03:56 04:01 04:06 Pulse Rate 76 62 69 O2 Sat by Pulse 97 97 97 Oximetry 08/16/20 08/16/20 08/16/20 04:11 04:16 04:21 Pulse Rate 74 77 76 O2 Sat by Pulse 96 96 96 Oximetry 08/16/20 08/16/20 08/16/20 04:26 04:31 04:36 Pulse Rate 78 77 85 O2 Sat by Pulse 96 97 96 Oximetry 08/16/20 08/16/20 08/16/20 04:41 04:46 04:51 Pulse Rate 59 L 79 59 L O2 Sat by Pulse 97 97 97 Oximetry 08/16/20 08/16/20 08/16/20 04:56 05:01 05:06 Pulse Rate 83 61 58 L O2 Sat by Pulse 98 98 98 Oximetry 08/16/20 08/16/20 08/16/20 05:11 05:16 05:21 Pulse Rate 58 L 83 72 O2 Sat by Pulse 98 97 97 Oximetry 08/16/20 08/16/20 08/16/20 05:26 05:31 05:36 Pulse Rate 77 57 L 63 O2 Sat by Pulse 97 97 97 Oximetry 08/16/20 08/16/20 08/16/20 05:41 05:46 05:51 Pulse Rate 79 73 75 O2 Sat by Pulse 98 98 97 Oximetry 08/16/20 08/16/20 08/16/20 05:56 06:01 06:06 Pulse Rate 88 63 56 L O2 Sat by Pulse 99 98 97 Oximetry 08/16/20 08/16/20 08/16/20 06:11 06:16 06:21 Pulse Rate 59 L 62 60 O2 Sat by Pulse 97 97 98 Oximetry 08/16/20 08/16/20 08/16/20 06:26 06:31 06:36 Pulse Rate 62 57 L 63 O2 Sat by Pulse 97 98 97 Oximetry 08/16/20 08/16/20 08/16/20 06:41 06:46 06:51 Pulse Rate 63 92 H 73 O2 Sat by Pulse 98 99 99 Oximetry 08/16/20 08/16/20 08/16/20 06:56 07:01 07:06 Pulse Rate 81 67 86 O2 Sat by Pulse 98 99 98 Oximetry 08/16/20 08/16/20 08/16/20 07:11 07:16 07:21 Pulse Rate 69 75 64 O2 Sat by Pulse 100 99 99 Oximetry 08/16/20 08/16/20 08/16/20 07:26 07:31 07:36 Pulse Rate 77 84 79 O2 Sat by Pulse 99 99 99 Oximetry 08/16/20 08/16/20 08/16/20 07:41 07:46 07:51 Pulse Rate 78 63 64 O2 Sat by Pulse 98 98 99 Oximetry 08/16/20 07:56 Pulse Rate 71 O2 Sat by Pulse 99 Oximetry - Exam Cardiovascular: Regular rate Lungs: Normal air movement Abdomen: Present: normal appearance FHR: category 1 Uterine Contraction Monitor Mode: External Uterine Contraction Pattern: Irregular - Labs Labs: Abnormal Labs 08/15/20 08/15/20 08/16/20 14:00 14:37 00:16 WBC 11.5 H RBC 3.61 L MCHC 35 H Seg Neutrophils % 77.8 H Seg Neutrophils # 8.9 H Magnesium 3.60 H Urine pH 8.0 H 08/16/20 05:52 WBC RBC MCHC Seg Neutrophils % Seg Neutrophils # Magnesium 3.60 H Urine pH Laboratory Results - last 24 hr 08/15/20 08/15/20 08/15/20 14:00 14:37 19:33 WBC 11.5 H RBC 3.61 L Hgb 11.2 Hct 32.1 MCV 89 MCH 31 MCHC 35 H RDW 13.5 Plt Count 212 Lymph % (Auto) 14.7 Ness % (Auto) 6.1 Eos % (Auto) 1.0 Baso % (Auto) 0.4 Lymph # (Auto) 1.7 Ness # (Auto) 0.7 Eos # (Auto) 0.1 Baso # (Auto) 0.0 Seg Neutrophils % 77.8 H Seg Neutrophils # 8.9 H Magnesium Urine Color Straw Urine Turbidity Clear Urine pH 8.0 H Ur Specific [place] 1.008 Urine Protein <15 mg/dl Urine Glucose (UA) Neg Urine Ketones Neg Urine Blood Neg Urine Nitrite Neg Urine Bilirubin Neg Urine Urobilinogen < 2.0 Ur Leukocyte Esterase Neg Urine WBC (Auto) < 1.0 Urine RBC (Auto) < 1.0 U Epithel Cells (Auto) < 1.0 Urine Mucus Few Syphilis IgG Antibody Blood Type O POSITIVE Antibody Screen Negative 08/15/20 08/16/20 08/16/20 19:33 00:16 05:52 WBC RBC Hgb Hct MCV MCH MCHC RDW Plt Count Lymph % (Auto) Ness % (Auto) Eos % (Auto) Baso % (Auto) Lymph # (Auto) Ness # (Auto) Eos # (Auto) Baso # (Auto) Seg Neutrophils % Seg Neutrophils # Magnesium 3.60 H 3.60 H Urine Color Urine Turbidity Urine pH Ur Specific [place] Urine Protein Urine Glucose (UA) Urine Ketones Urine Blood Urine Nitrite Urine Bilirubin Urine Urobilinogen Ur Leukocyte Esterase Urine WBC (Auto) Urine RBC (Auto) U Epithel Cells (Auto) Urine Mucus Syphilis IgG Antibody Nonreactive Blood Type Antibody Screen
[2020-08-16] MEDS ORDERED: PRENATAL VIT27-FE FUMARATE-FOLIC ACID VIT TAB PO SCH (10:00)
[2020-08-16] MEDS ORDERED: MAGNESIUM SULFATE 40GM/1000ML 40 GM/1,000 ML BAG IV SCH (13:00)
--- NOTE | 2020-08-16 16:15 | Event Note ---
Date: 08/16/20 Patient informed of +COVID testing, instructed to quarantine [id number], no visitor. Call office for any problems when she goes hoe. Also discussed dicharge home tomorrow after the last dose of steroids. She voiced understanding and agrees with plan of care.
[2020-08-16] MEDS: MAGNESIUM SULFATE 40GM/1000ML 40 GM/1,000 ML BAG IV SCH (20:57)
[2020-08-16] MEDS ORDERED: LIDOCAINE 2% JELLY 30 ML TP ONE (21:08)
--- NOTE | 2020-08-17 06:54 | Progress Note ---
Assessment and Plan patient sleeping without complaints, SVE closed. No s/s SROM or vag bleeding. Plan for patient to get last dose of steroids and then d/c home. Pt agrees with plan. She will schedule an appointment in 10 days d/t + COVID test w/o symptoms. - Patient Problems (1) with 25 completed weeks gestation Current Visit: Yes Status: Acute (2) labor Current Visit: No Status: Acute Qualifiers: labor trimester: second trimester labor delivery status: without delivery Qualified Code(s): O60.02 - labor without delivery, second trimester Subjective - Subjective Date of service: 08/17/20 Principal diagnosis: IUP @ 25 weeks Contractions Patient reports: movement normal, no new complaints, no loss of fluid, no vaginal bleeding, no contractions Objective - Vital Signs Vital Signs: Vital Signs - 12hr 08/16/20 08/16/20 08/16/20 18:54 18:59 19:04 Temperature Pulse Rate 78 82 78 Respiratory Rate Blood Pressure O2 Sat by Pulse 100 99 98 Oximetry 08/16/20 08/16/20 08/16/20 19:09 19:14 19:19 Temperature Pulse Rate 79 70 72 Respiratory Rate Blood Pressure O2 Sat by Pulse 99 99 99 Oximetry 08/16/20 08/16/20 08/16/20 19:24 19:29 19:34 Temperature Pulse Rate 85 87 77 Respiratory Rate Blood Pressure O2 Sat by Pulse 99 99 99 Oximetry 08/16/20 08/16/20 08/16/20 19:39 19:44 19:49 Temperature Pulse Rate 76 80 73 Respiratory Rate Blood Pressure O2 Sat by Pulse 99 99 99 Oximetry 08/16/20 08/16/20 08/16/20 19:54 19:59 20:04 Temperature Pulse Rate 77 75 71 Respiratory Rate Blood Pressure O2 Sat by Pulse 99 99 98 Oximetry 08/16/20 08/16/20 08/16/20 20:09 20:14 20:19 Temperature Pulse Rate 67 83 70 Respiratory Rate Blood Pressure O2 Sat by Pulse 99 100 100 Oximetry 08/16/20 08/16/20 08/16/20 20:21 20:24 20:29 Temperature Pulse Rate 86 87 70 Respiratory Rate Blood Pressure O2 Sat by Pulse 93 98 100 Oximetry 04/24/21 04/24/21 04/24/21 20:34 20:39 20:40 Temperature 97.4 F L Pulse Rate 69 71 72 Respiratory 20 Rate Blood Pressure 101/63 O2 Sat by Pulse 100 100 Oximetry 08/16/20 08/16/20 08/16/20 20:44 20:49 20:54 Temperature Pulse Rate 77 67 67 Respiratory Rate Blood Pressure O2 Sat by Pulse 100 100 100 Oximetry 08/16/20 08/16/20 08/16/20 20:59 21:00 21:04 Temperature Pulse Rate 71 67 65 Respiratory Rate Blood Pressure 126/57 O2 Sat by Pulse 100 100 Oximetry 08/16/20 08/16/20 08/16/20 21:09 21:14 21:19 Temperature Pulse Rate 73 65 69 Respiratory Rate Blood Pressure O2 Sat by Pulse 97 98 99 Oximetry 08/16/20 08/16/20 08/16/20 21:24 21:28 21:29 Temperature Pulse Rate 83 75 61 Respiratory Rate Blood Pressure O2 Sat by Pulse 98 93 99 Oximetry 08/16/20 08/16/20 08/16/20 21:34 21:39 21:44 Temperature Pulse Rate 64 67 69 Respiratory Rate Blood Pressure O2 Sat by Pulse 98 98 98 Oximetry 08/16/20 08/16/20 08/16/20 21:49 21:54 21:59 Temperature Pulse Rate 77 83 71 Respiratory Rate Blood Pressure O2 Sat by Pulse 99 100 99 Oximetry 08/16/20 08/16/20 08/16/20 22:00 22:04 22:09 Temperature Pulse Rate 81 68 65 Respiratory Rate Blood Pressure 111/74 O2 Sat by Pulse 99 99 Oximetry 08/16/20 08/16/20 08/16/20 22:14 22:19 22:24 Temperature Pulse Rate 69 70 62 Respiratory Rate Blood Pressure O2 Sat by Pulse 98 98 98 Oximetry 08/16/20 08/16/20 08/16/20 22:29 22:34 22:36 Temperature Pulse Rate 75 68 96 H Respiratory Rate Blood Pressure O2 Sat by Pulse 99 99 94 Oximetry 08/16/20 08/16/20 08/16/20 22:39 22:44 22:49 Temperature Pulse Rate 70 64 65 Respiratory Rate Blood Pressure O2 Sat by Pulse 99 98 98 Oximetry 08/16/20 08/16/20 08/16/20 22:54 22:59 23:00 Temperature Pulse Rate 65 66 62 Respiratory Rate Blood Pressure 101/54 O2 Sat by Pulse 99 97 Oximetry 08/16/20 08/16/20 08/16/20 23:04 23:09 23:14 Temperature Pulse Rate 62 60 68 Respiratory Rate Blood Pressure O2 Sat by Pulse 97 97 97 Oximetry 08/16/20 08/16/20 08/16/20 23:19 23:24 23:29 Temperature Pulse Rate 68 69 74 Respiratory Rate Blood Pressure O2 Sat by Pulse 97 97 97 Oximetry 08/16/20 08/16/20 08/16/20 23:34 23:39 23:44 Temperature Pulse Rate 72 74 73 Respiratory Rate Blood Pressure O2 Sat by Pulse 97 97 97 Oximetry 08/16/20 08/16/20 08/16/20 23:49 23:54 23:59 Temperature Pulse Rate 77 62 91 H Respiratory Rate Blood Pressure O2 Sat by Pulse 95 98 98 Oximetry 08/17/20 08/17/20 08/17/20 00:00 00:04 00:09 Temperature Pulse Rate 62 59 L 67 Respiratory Rate Blood Pressure 112/58 O2 Sat by Pulse 97 97 Oximetry 08/17/20 08/17/20 08/17/20 00:14 00:19 00:24 Temperature Pulse Rate 67 74 71 Respiratory Rate Blood Pressure O2 Sat by Pulse 97 97 97 Oximetry 08/17/20 08/17/20 08/17/20 00:29 00:34 00:39 Temperature Pulse Rate 72 74 56 L Respiratory Rate Blood Pressure O2 Sat by Pulse 97 97 98 Oximetry 08/17/20 08/17/20 08/17/20 00:43 00:44 00:49 Temperature Pulse Rate 84 69 61 Respiratory Rate Blood Pressure O2 Sat by Pulse 90 99 99 Oximetry 08/17/20 08/17/20 08/17/20 00:54 00:59 01:01 Temperature Pulse Rate 66 66 61 Respiratory Rate Blood Pressure 100/50 O2 Sat by Pulse 98 98 Oximetry 08/17/20 08/17/20 08/17/20 01:04 01:09 01:14 Temperature Pulse Rate 73 66 66 Respiratory Rate Blood Pressure O2 Sat by Pulse 98 98 98 Oximetry 08/17/20 08/17/20 08/17/20 01:19 01:24 01:29 Temperature Pulse Rate 71 75 74 Respiratory Rate Blood Pressure O2 Sat by Pulse 98 98 98 Oximetry 08/17/20 08/17/2008/17/21 01:34 01:39 01:44 Temperature Pulse Rate 73 78 69 Respiratory Rate Blood Pressure O2 Sat by Pulse 98 97 98 Oximetry 08/17/20 08/17/20 08/17/20 01:49 01:54 01:59 Temperature Pulse Rate 56 L 70 76 Respiratory Rate Blood Pressure O2 Sat by Pulse 99 98 98 Oximetry 08/17/20 08/17/20 08/17/20 02:00 02:04 02:09 Temperature Pulse Rate 81 65 78 Respiratory Rate Blood Pressure 117/56 O2 Sat by Pulse 98 98 Oximetry 08/17/20 08/17/20 08/17/20 02:14 02:19 02:24 Temperature Pulse Rate 65 71 69 Respiratory Rate Blood Pressure O2 Sat by Pulse 98 98 98 Oximetry 08/17/20 08/17/20 08/17/20 02:29 02:34 02:39 Temperature Pulse Rate 80 66 70 Respiratory Rate Blood Pressure O2 Sat by Pulse 98 98 98 Oximetry 08/17/20 08/17/20 08/17/20 02:40 02:44 02:49 Temperature Pulse Rate 88 84 57 L Respiratory Rate Blood Pressure O2 Sat by Pulse 90 97 99 Oximetry 08/17/20 08/17/20 08/17/20 02:54 02:59 03:00 Temperature Pulse Rate 57 L 59 L 58 L Respiratory Rate Blood Pressure 80/45 O2 Sat by Pulse 98 98 Oximetry 08/17/20 08/17/20 08/17/20 03:04 03:09 03:14 Temperature Pulse Rate 60 65 68 Respiratory Rate Blood Pressure O2 Sat by Pulse 97 97 97 Oximetry 08/17/20 08/17/20 08/17/20 03:19 03:24 03:29 Temperature Pulse Rate 69 67 71 Respiratory Rate Blood Pressure O2 Sat by Pulse 97 97 97 Oximetry 08/17/20 08/17/20 08/17/20 03:34 03:39 03:43 Temperature Pulse Rate 71 75 85 Respiratory Rate Blood Pressure O2 Sat by Pulse 97 96 94 Oximetry 08/17/20 08/17/20 08/17/20 03:44 03:49 03:54 Temperature Pulse Rate 61 63 60 Respiratory Rate Blood Pressure O2 Sat by Pulse 98 97 97 Oximetry 08/17/20 08/17/20 08/17/20 03:59 04:00 04:04 Temperature Pulse Rate 69 58 L 61 Respiratory Rate Blood Pressure 101/51 O2 Sat by Pulse 97 97 Oximetry 08/17/20 08/17/20 08/17/20 04:09 04:14 04:19 Temperature Pulse Rate 65 57 L 61 Respiratory Rate Blood Pressure O2 Sat by Pulse 97 98 98 Oximetry 08/17/20 08/17/20 08/17/20 04:24 04:29 04:34 Temperature Pulse Rate 61 57 L 60 Respiratory Rate Blood Pressure O2 Sat by Pulse 98 98 98 Oximetry 08/17/20 08/17/20 08/17/20 04:39 04:44 04:49 Temperature Pulse Rate 57 L 69 72 Respiratory Rate Blood Pressure O2 Sat by Pulse 98 98 99 Oximetry 08/17/20 08/17/20 08/17/20 04:54 04:59 05:00 Temperature Pulse Rate 63 60 59 L Respiratory Rate Blood Pressure 99/54 O2 Sat by Pulse 98 98 Oximetry 08/17/20 08/17/20 08/17/20 05:04 05:09 05:14 Temperature Pulse Rate 62 66 56 L Respiratory Rate Blood Pressure O2 Sat by Pulse 98 98 98 Oximetry 08/17/20 08/17/20 08/17/20 05:19 05:24 05:29 Temperature Pulse Rate 59 L 59 L 61 Respiratory Rate Blood Pressure O2 Sat by Pulse 98 98 97 Oximetry 08/17/20 08/17/20 08/17/20 05:34 05:39 05:44 Temperature Pulse Rate 61 54 L 53 L Respiratory Rate Blood Pressure O2 Sat by Pulse 97 99 99 Oximetry 08/17/20 08/17/20 08/17/20 05:49 05:54 05:59 Temperature Pulse Rate 62 63 65 Respiratory Rate Blood Pressure O2 Sat by Pulse 99 98 98 Oximetry 08/17/20 08/17/20 08/17/20 06:00 06:04 06:09 Temperature Pulse Rate 62 64 66 Respiratory Rate Blood Pressure 86/48 O2 Sat by Pulse 99 99 Oximetry 08/17/20 08/17/20 08/17/20 06:14 06:19 06:24 Temperature Pulse Rate 71 55 L 63 Respiratory Rate Blood Pressure O2 Sat by Pulse 99 99 98 Oximetry 08/17/20 08/17/20 08/17/20 06:29 06:34 06:39 Temperature Pulse Rate 63 59 L 61 Respiratory Rate Blood Pressure O2 Sat by Pulse 98 97 97 Oximetry 08/17/20 08/17/20 08/17/20 06:41 06:44 06:49 Temperature Pulse Rate 95 H 75 76 Respiratory Rate Blood Pressure O2 Sat by Pulse 94 99 87 Oximetry - Exam Breasts: normal Cardiovascular: Regular rate Lungs: Normal air movement Abdomen: Present: normal appearance, soft Vulva: both: normal Uterus: Present: normal, fundal height above umbilicus FHR: auscultation normal, category 1 Uterine Contraction Monitor Mode: External Cervical Dilatation: 0 Cervical Effacement Percentage: 0 station: -4 Uterine Contraction Pattern: Absent Uterine Tone Measurement Phase: Resting Extremities: normal Deep Tendon Reflex Grade: Normal +2 - Labs Labs: Abnormal Labs 08/15/20 08/15/20 08/15/20 14:00 14:37 Unknown WBC 11.5 H RBC 3.61 L MCHC 35 H Seg Neutrophils % 77.8 H Seg Neutrophils # 8.9 H Magnesium Urine pH 8.0 H Coronavirus (PCR) Positive A 08/16/20 08/16/20 08/16/20 00:16 05:52 12:57 WBC RBC MCHC Seg Neutrophils % Seg Neutrophils # Magnesium 3.60 H 3.60 H 3.90 H Urine pH Coronavirus (PCR) 08/16/20 08/17/20 17:27 00:43 WBC RBC MCHC Seg Neutrophils % Seg Neutrophils # Magnesium 4.80 H 5.30 H Urine pH Coronavirus (PCR) Laboratory Results - last 24 hr 08/15/20 08/16/20 08/16/20 Unknown 12:57 17:27 Magnesium 3.90 H 4.80 H Membranes Rupture Coronavirus (PCR) Positive A 08/16/20 08/17/20 Unknown 00:43 Magnesium 5.30 H Membranes Rupture Negative Coronavirus (PCR)
--- NOTE | 2020-08-17 06:58 | Discharge Summary ---
Providers - Providers Date of Admission: 08/15/20 13:03 Date of discharge: 08/17/20 Attending physician: BILL CONRAD Primary care physician: BILL CONRAD Hospitalization Reason for admission: labor Discharge diagnosis: other (IUP @ 25wks) Pertinent studies: COVID test +; no symptoms Hospital course: steroids for lung maturity Condition at discharge: Good Disposition: DC-01 TO HOME OR SELFCARE - Discharge Diagnoses (1) with 25 completed weeks gestation Status: Acute (2) labor Status: Acute Qualifiers: labor trimester: second trimester labor delivery status: without delivery Qualified Code(s): O60.02 - labor without delivery, second trimester Plan - Provider Discharge Summary Diet: routine Instructions: routine Additional instructions: [] Smoking cessation referral if applicable(refer to patient education folder for contact #) [] Refer to [facility]'s [place] [facility] Book[facility] Call your doctor immediately for: * Fever > 100.5 * Heavy vaginal bleeding ( >1 pad per hour) * Severe persistent headache * Shortness of breath * Reddened, hot, painful area to leg or breast * Drainage or odor from incision. * Keep incision clean and dry at all times and follow doctor's instructions regarding bathing/showering - Follow up plan Follow up: BILL CONRAD MD [Primary Care Provider] - 10 Days (Please call your insurance to find a neurologist. As long as you have no symptoms of COVID, you can be seen in the office in 10 days. Call [phone] to schedule your appointment. )
[2020-08-17 08:01] VITALS: BP 117/61
[2020-08-17] MEDS: dexAMETHasone 4 MG/ML VIAL IM SCH (08:13)
== END 2020-08-17 08:32 | disposition home or self-care (01) | DRG 781 ==
LOC: TRG 13:02 → LD 13:03 → APU 13:03 → TRG 17:57
PROVIDERS: ADMIT Obstetrics & Gynecology; ATTEND Obstetrics & Gynecology
DX: O98.512 Other viral diseases complicating pregnancy, second trimester (principal); O60.02 Preterm labor without delivery, second trimester; U07.1 COVID-19; Z3A.25 25 weeks gestation of pregnancy; Z79.899 Other long term (current) drug therapy
CPT/HCPCS: 36415; 59025; 76815; 81001; 83735; 84112; 85025; 86592; 86850; 86900; 86901; 96372; G0378; J1100; J3105; J3475; J7120; U0003

== ENCOUNTER 2020-09-08 16:29 | Outpatient (CLI) | payer MEDICAID ==
[2020-09-08] MEDS ORDERED: LACTATED RINGERS 1,000 ML ONE (17:11)
[2020-09-08] MEDS ORDERED: TERBUTALINE 1 MG/1 ML INJ ONE (17:11)
[2020-09-08] MEDS ORDERED: LACTATED RINGERS 500 ML IV ONE (17:11)
[2020-09-08 17:19] VITALS: BP 120/68
[2020-09-08] MEDS: TERBUTALINE 1 MG/1 ML INJ SUB-Q SCH ×2 (17:21→17:47)
[2020-09-08 17:46] LABS: Bacteria,Urine 1+ /HPF (Negative); Bilirubin,Urine NEG (Negative); Blood,Urine NEG (Negative); Color,Urine Straw (Yellow); Protein,Urine <15 mg/dL mg/dL (Negative); RBC,Urine < 1.0 /HPF (0.0-6.0); Urobilinogen,Urine < 2.0 mg/dL (<2.0); WBC,Urine < 1.0 /HPF (0.0-6.0)
== END 2020-09-08 18:58 | disposition home or self-care (01) ==
LOC: TRG 16:29 → APU 16:33 → TRG 18:58
PROVIDERS: ATTEND Obstetrics & Gynecology
DX: O47.03 False labor before 37 completed weeks of gestation, third trimester (principal); Z3A.29 29 weeks gestation of pregnancy
CPT/HCPCS: 36415; 59025; 81001; 82731; 96372; J3105; J7120; 96360

== ENCOUNTER 2020-09-15 17:51 | Outpatient (CLI) | payer MEDICAID ==
[2020-09-15] MEDS ORDERED: LACTATED RINGERS 500 ML IV ONE (18:47)
[2020-09-15 18:48] VITALS: BP 116/56
[2020-09-15] MEDS ORDERED: ACETAMINOPHEN 500 MG TAB PO ONE (18:48)
[2020-09-15 19:50] LABS: Amorphous Crystals,Urine Few; Bacteria,Urine 1+ /HPF (Negative); Bilirubin,Urine NEG (Negative); Blood,Urine NEG (Negative); Color,Urine Yellow (Yellow); Mucus,Urine FEW /HPF; Protein,Urine <15 mg/dL mg/dL (Negative)
== END 2020-09-15 20:00 | disposition home or self-care (01) ==
LOC: TRG 17:51 → APU 18:02 → TRG 20:00
PROVIDERS: ATTEND Obstetrics & Gynecology
DX: Z34.93 Encounter for supervision of normal pregnancy, unspecified, third trimester (principal); Z3A.30 30 weeks gestation of pregnancy
CPT/HCPCS: 59025; 81001

== ENCOUNTER 2020-09-16 17:55 | Outpatient (CLI) | payer MEDICAID ==
[2020-09-16 18:22] VITALS: BP 124/62
[2020-09-16 18:55] LABS: Bilirubin,Urine NEG (Negative); Blood,Urine NEG (Negative); Color,Urine Straw (Yellow); Protein,Urine <15 mg/dL mg/dL (Negative); Urobilinogen,Urine < 2.0 mg/dL (<2.0)
[2020-09-16] MEDS ORDERED: LACTATED RINGERS 500 ML IV ONE (19:35)
== END 2020-09-16 19:15 | disposition home or self-care (01) ==
LOC: TRG 17:55 → APU 17:56 → TRG 19:15
PROVIDERS: ATTEND Obstetrics & Gynecology
DX: O62.9 Abnormality of forces of labor, unspecified (principal); O26.893 Other specified pregnancy related conditions, third trimester; R10.30 Lower abdominal pain, unspecified; Z3A.30 30 weeks gestation of pregnancy; Z87.891 Personal history of nicotine dependence
CPT/HCPCS: 59025; 81001; Q0177

== ENCOUNTER 2020-10-28 19:35 | Inpatient (IN) | payer MEDICAID ==
--- NOTE | 2020-10-28 21:53 | History and Physical Report ---
History of Present Illness Date of examination: 10/28/20 Chief complaint: observation, possible labor @ 36w2d History of present illness: EDC Confirmation: 11/26/2020 Past History : 3 Term Births: 2 Premature Births: 0 Living Children: 2 Para: 2 Mult. Births: 0 Prev : 0 Aborta: 0 Elect. Ab: 0 Spont. Ab: 0 Ectopics: 0 # 1 Delivery date: 11/01/2014 Weeks Gestation: 39 Delivery type: Vaginal Hours of labor: 10 Anesthesia type: epidural Delivery location: [facility] [place] Sex: male weight: 6.56 Name: Yohan # 2 Delivery date: 2017 Weeks Gestation: 37 labor: no Delivery type: Anesthesia type: epidural Delivery location: [facility] Sex: Female weight: 7-10 Past Medical History: Reviewed history from 04/23/2014 and no changes required: Seizures: Diagnosed 2019 Past Surgical History: Reviewed history from 04/23/2014 and no changes required: negative Past Medical History Anesthesia Complications: negative Anemia: negative Autoimmune Disorder: negative Bleeding Disorder: negative Blood Transfusions: negative Breast Disease: negative Diabetes: negative Heart Disease: negative Hypertension: negative Hepatitis/Liver Disease: negative Kidney Disease/UTI: negative Neurologic/Epilepsy/Migraines: positive, Seizures Phlebitis/Varicosities: negative Psychiatric: negative Pulmonary Disease/Asthma: negative Thyroid Disease: negative Hospitalizations: negative Surgery (Non-repair service clerk): negative Abnormal PAP: negative KERRY Exposure: negative Infertility: negative Uterine Anomaly: negative Uterine Surgery (not C/S): negative Other Gynecologic Problems: negative Social Hx: Patient is single Student Smoking History: Patient has never smoked. Infection History Hx of STD: none HIV Risk Eval: no Hepatitis B Risk Eval: low risk Personal hx. of genital herpes: no Partner hx. of genital herpes: no Rash, Viral, or Febrile illness since last LMP? no Varicella/Chicken Pox Status: Immunized TB Risk: no Genetic History Congenital Heart Defect: Mom: no Dad: no Desiree Disease: Mom: no Dad: no Thalassemia Mom: no Dad: no Neural Tube Defect Mom: no Dad: no Down's Syndrome Mom: no Dad: no Andrew-Sachs Mom: no Dad: no Sickle Cell Disease/Trait Mom: no Dad: no Hemophilia Mom: no Dad: no Muscular Dystrophy Mom: no Dad: no Cystic Fibrosis Mom: no Dad: no Crane Chorea Mom: no Dad: no Mental Retardation Mom: no Dad: no Fragile X Mom: no Dad: no Other Genetic/Chromosomal Disorder Mom: no Dad: no Child w/other defect Mom: no Dad: no Enviromental Exposures Xray Exposure: no Medication, drug, or alcohol use since LMP: yes Chemical/Other Exposure: no Exposure to Cat Liter: yes Hx of Parvovirus (Fifth Disease): no Occupational Exposure to Children: none Past History Past Medical History: seizure Past Surgical History: no surgical history Family/Genetic History: none Social history: single, smoking - Obstetrical History Expected Date of Delivery: 11/23/20 Actual Gestation: 36 Week(s) 2 Day(s) : 3 Para: 2 Hx # Term Pregnancies: 2 Number of Pregnancies: 0 Spontaneous Abortions: 0 Induced : 0 Number of Living Children: 2 Medications and Allergies Allergies Allergy/AdvReac Type Severity Reaction Status Date / Time No Known Allergies Allergy Verified 09/16/20 18:25 Home Medications Medication Instructions Recorded Confirmed Last Taken Type Tablet 1 tab PO DAILY 09/30/14 09/16/20 09/09/20 History Review of Systems All systems: negative - Vital Signs Vital signs: Vital Signs Pulse BP 81 128/66 10/28/20 20:01 10/28/20 20:01 Temp Pulse Resp BP Pulse Ox 97.6 F 81 18 128/66 10/28/20 20:05 10/28/20 20:01 10/28/20 20:05 10/28/20 20:05 - Physical Exam Breasts: Positive: normal Cardiovascular: Regular rate Lungs: Positive: Normal air movement Abdomen: Positive: normal appearance, soft Genitourinary (Female): Positive: normal external genitalia, normal perenium Extremities: Positive: normal Deep Tendon Reflex Grade: Normal +2 - Obstetrical FHR: category 1 Uterine Contraction Monitor Mode: External Uterine Contraction Pattern: Irregular Uterine Tone Measurement Phase: Contraction Uterine Contraction Intensity: Mild Results Result Diagrams: 10/28/20 22:00 All other labs normal. Assessment and Plan 25 y/o @ 36+2 presented for second time time 24hrs with c/o contractions. nurse this PM stated patient was 4cms ( I examined her this morning and she was a loose 3cms.) After she walked, pt was examined by a different nurse and was "stretched" to 5cms. explained to patient that she is and we can not accelerate the process nor will we stop her contractions.Will admit patient for observation overnight, administer pain medication and a course of steroids due to gestation < 36+6 weeks. - Patient Problems (1) 36 weeks gestation of Current Visit: Yes Status: Acute (2) HSV (herpes simplex virus) infection Current Visit: Yes Status: Acute Plan to address problem: no s/s lesions noted on exam (3) Placenta succenturiata Current Visit: Yes Status: Acute Qualifiers: Trimester: third trimester Qualified Code(s): O43.193 - Other malformation of placenta, third trimester (4) labor Current Visit: No Status: Acute Qualifiers: labor trimester: third trimester labor delivery status: without delivery Qualified Code(s): O60.03 - labor without delivery, third trimester Plan to address problem: rescue dose of steroids overnight monitoring for labor
[2020-10-28] MEDS ORDERED: METHYLERGONOVINE MALEATE 0.2 MG/ML VIAL IM PRN (22:05)
[2020-10-28] MEDS ORDERED: ePHEDrine SULFATE 50 MG/1 ML INJ IV PRN (22:05)
[2020-10-28] MEDS ORDERED: TERBUTALINE 1 MG/1 ML INJ SUB-Q PRN (22:05)
[2020-10-28] MEDS ORDERED: BUTORPHANOL 2 MG/1 ML INJ IV PRN (22:05)
[2020-10-28] MEDS ORDERED: ACETAMINOPHEN 325 MG TAB PO PRN (22:05)
[2020-10-28] MEDS ORDERED: MINERAL OIL 30 ML ORAL LIQD PO PRN (22:05)
[2020-10-28] MEDS ORDERED: OXYTOCIN 10 UNIT/1 ML INJ IM PRN (22:05)
[2020-10-28] MEDS ORDERED: miSOPROStol 200 MCG TAB PR PRN (22:05)
[2020-10-28] MEDS ORDERED: CARBOPROST TROMETHAMINE 250 MCG/1 ML INJ IM PRN (22:05)
[2020-10-28] MEDS ORDERED: NalbUPHINE 10 MG/1 ML INJ IV PRN (22:05)
[2020-10-28] MEDS ORDERED: LOPERAMIDE 2 MG CAP PO PRN (22:05)
[2020-10-28] MEDS ORDERED: BETAMET ACET/BETAMET NA PH 6 MG/ML INJ 5 ML MDV IM SCH (22:08)
[2020-10-28 22:25] LABS: Hematocrit 27.2 % (30.3-42.9); Hemoglobin 9.1 gm/dl (10.1-14.3); Mean Corpuscular HGB Conc 33 % (30-34); Mean Corpuscular Volume 83 fl (79-97); Platelet Count 230 K/mm3 (140-440); Red Blood Count 3.28 M/mm3 (3.65-5.03)
[2020-10-28] MEDS: LACTATED RINGERS 1,000 ML IV SCH (22:30)
[2020-10-28] MEDS ORDERED: OXYTOCIN DRIP 30 UNITS/500 ML BAG IV SCH (23:00)
--- NOTE | 2020-10-29 01:34 | Progress Note ---
Assessment and Plan Patient asking for more medication and if she can have epidural, SVE now 5.5/70/-2. Will proceed with labor orders, epidural PRN. - Patient Problems (1) 36 weeks gestation of Current Visit: Yes Status: Acute (2) HSV (herpes simplex virus) infection Current Visit: Yes Status: Acute (3) Placenta succenturiata Current Visit: Yes Status: Acute Qualifiers: Trimester: third trimester Qualified Code(s): O43.193 - Other malformation of placenta, third trimester (4) labor Current Visit: No Status: Acute Qualifiers: labor trimester: third trimester Fetus number: single or unspecified fetus Subjective - Subjective Date of service: 10/29/20 Principal diagnosis: IUP @ 36+3; labor Interval history: EDC Confirmation: 11/26/2020 Past History : 3 Term Births: 2 Premature Births: 0 Living Children: 2 Para: 2 Mult. Births: 0 Prev : 0 Aborta: 0 Elect. Ab: 0 Spont. Ab: 0 Ectopics: 0 # 1 Delivery date: 11/01/2014 Weeks Gestation: 39 Delivery type: Vaginal Hours of labor: 10 Anesthesia type: epidural Delivery location: [facility] Infant Sex: male weight: 6.56 Name: Almanzar # 2 Delivery date: 2018 Weeks Gestation: 37 labor: no Delivery type: Anesthesia type: epidural Delivery location: [facility] Sex: Female weight: 7-10 Past Medical History: Reviewed history from 04/23/2014 and no changes required: Seizures: Diagnosed 2019 Past Surgical History: Reviewed history from 04/23/2014 and no changes required: negative Past Medical History Anesthesia Complications: negative Anemia: negative Autoimmune Disorder: negative Bleeding Disorder: negative Blood Transfusions: negative Breast Disease: negative Diabetes: negative Heart Disease: negative Hypertension: negative Hepatitis/Liver Disease: negative Kidney Disease/UTI: negative Neurologic/Epilepsy/Migraines: positive, Seizures Phlebitis/Varicosities: negative Psychiatric: negative Pulmonary Disease/Asthma: negative Thyroid Disease: negative Hospitalizations: negative Surgery (Non-tool chaser): negative Abnormal PAP: negative KERRY Exposure: negative Infertility: negative Uterine Anomaly: negative Uterine Surgery (not C/S): negative Other Gynecologic Problems: negative Social Hx: Patient is single Student Smoking History: Patient has never smoked. Infection History Hx of STD: none HIV Risk Eval: no Hepatitis B Risk Eval: low risk Personal hx. of genital herpes: no Partner hx. of genital herpes: no Rash, Viral, or Febrile illness since last LMP? no Varicella/Chicken Pox Status: Immunized TB Risk: no Genetic History Congenital Heart Defect: Mom: no Dad: no Desiree Disease: Mom: no Dad: no Thalassemia Mom: no Dad: no Neural Tube Defect Mom: no Dad: no Down's Syndrome Mom: no Dad: no Andrew-Sachs Mom: no Dad: no Sickle Cell Disease/Trait Mom: no Dad: no Hemophilia Mom: no Dad: no Muscular Dystrophy Mom: no Dad: no Cystic Fibrosis Mom: no Dad: no Benzie Chorea Mom: no Dad: no Mental Retardation Mom: no Dad: no Fragile X Mom: no Dad: no Other Genetic/Chromosomal Disorder Mom: no Dad: no Child w/other defect Mom: no Dad: no Enviromental Exposures Xray Exposure: no Medication, drug, or alcohol use since LMP: yes Chemical/Other Exposure: no Exposure to Cat Liter: yes Hx of Parvovirus (Fifth Disease): no Occupational Exposure to Children: none Patient reports: contractions Objective - Vital Signs Vital Signs: Vital Signs - 12hr 10/28/20 10/28/20 10/28/20 20:01 20:05 23:24 Temperature 97.6 F Pulse Rate 81 Respiratory 18 18 Rate Blood Pressure 128/66 Blood Pressure 128/66 [Right] O2 Sat by Pulse Oximetry 10/28/20 10/28/20 10/28/20 23:42 23:47 23:52 Temperature Pulse Rate 72 61 76 Respiratory Rate Blood Pressure Blood Pressure [Right] O2 Sat by Pulse 98 97 98 Oximetry 10/28/20 10/28/20 10/29/20 23:57 23:58 00:02 Temperature Pulse Rate 53 L 49 L 52 L Respiratory Rate Blood Pressure Blood Pressure [Right] O2 Sat by Pulse 98 92 97 Oximetry 10/29/20 10/29/20 10/29/20 00:07 00:12 00:17 Temperature Pulse Rate 55 L 53 L 62 Respiratory Rate Blood Pressure Blood Pressure [Right] O2 Sat by Pulse 97 96 96 Oximetry 10/29/20 10/29/20 10/29/20 00:22 00:27 00:32 Temperature Pulse Rate 69 55 L 76 Respiratory Rate Blood Pressure Blood Pressure [Right] O2 Sat by Pulse 99 99 97 Oximetry 10/29/20 10/29/20 10/29/20 00:37 00:42 00:47 Temperature Pulse Rate 56 L 64 88 Respiratory Rate Blood Pressure Blood Pressure [Right] O2 Sat by Pulse 97 99 99 Oximetry 10/29/20 10/29/20 10/29/20 00:52 00:57 01:02 Temperature Pulse Rate 54 L 58 L 68 Respiratory Rate Blood Pressure Blood Pressure [Right] O2 Sat by Pulse 98 96 98 Oximetry 10/29/20 10/29/20 10/29/20 01:07 01:12 01:17 Temperature Pulse Rate 78 87 71 Respiratory Rate Blood Pressure Blood Pressure [Right] O2 Sat by Pulse 98 97 97 Oximetry 10/29/20 10/29/20 01:22 01:27 Temperature Pulse Rate 68 84 Respiratory Rate Blood Pressure Blood Pressure [Right] O2 Sat by Pulse 97 100 Oximetry - Exam Breasts: normal Cardiovascular: Regular rate Lungs: Normal air movement Abdomen: Present: normal appearance, soft Vulva: both: normal FHR: category 1 Uterine Contraction Monitor Mode: External Cervical Dilatation: 5.5 Cervical Effacement Percentage: 70 station: -2 Uterine Contraction Frequency (min): 7 Uterine Contraction Duration: 60 Uterine Contraction Pattern: Regular Uterine Tone Measurement Phase: Contraction Uterine Contraction Intensity: Mild Extremities: normal Deep Tendon Reflex Grade: Normal +2 - Labs Labs: Abnormal Labs 10/28/20 22:00 WBC 13.1 H RBC 3.28 L Hgb 9.1 L Hct 27.2 L Laboratory Results - last 24 hr 10/28/20 10/28/20 10/28/20 22:00 22:00 22:00 WBC 13.1 H RBC 3.28 L Hgb 9.1 L Hct 27.2 L MCV 83 MCH 28 MCHC 33 RDW 14.0 Plt Count 230 Syphilis IgG Antibody Nonreactive Blood Type O POSITIVE Antibody Screen Negative
[2020-10-29] MEDS ORDERED: FAMOTIDINE 20 MG/2 ML INJ IV ONE (02:06)
[2020-10-29] MEDS: LACTATED RINGERS 1,000 ML IV SCH (02:10)
[2020-10-29] MEDS ORDERED: diphenhydrAMINE 50 MG/ML VIAL IV PRN (02:12)
[2020-10-29] MEDS ORDERED: ePHEDrine SULFATE 50 MG/1 ML INJ IV PRN (02:12)
[2020-10-29] MEDS ORDERED: NalbUPHINE 10 MG/1 ML INJ IV PRN (02:12)
[2020-10-29] MEDS ORDERED: ONDANSETRON 4 MG/2 ML INJ IV PRN (02:12)
[2020-10-29] MEDS ORDERED: LACTATED RINGERS 250 ML IV SOLN IV ONE (02:12)
[2020-10-29] MEDS ORDERED: NALOXONE 2 MG/2 ML INJ IV PRN (02:12)
--- NOTE | 2020-10-29 02:47 | Anesthesia Consultation ---
Anesthesia Consult and Med Hx Date of service: 10/29/20 - Airway Anesthetic Teeth Evaluation: Good ROM Head & Neck: Adequate Mental/Hyoid Distance: Adequate Mallampati Class: Class II Intubation Access Assessment: Probably Good - Pulmonary Exam CTA: Yes - Cardiac Exam Cardiac Exam: RRR - Pre-Operative Health Status ASA Pre-Surgery Classification: ASA2 Proposed Anesthetic Plan: Epidural - Pulmonary Hx Smoking: Yes Hx Asthma: No COPD: No Hx Pneumonia: No Hx Sleep Apnea: No - Cardiovascular System Hx Hypertension: No Hx Coronary Artery Disease: No Hx Heart Attack/AMI: No Hx Angina: No - Central Nervous System Hx Seizures: Yes (Apr 2019) Hx Psychiatric Problems: Yes (BIPOLAR, DEPRESSION BUT NO MEDICATION) - Gastrointestinal Hx Gastroesophageal Reflux Disease: No - Endocrine Hx Renal Disease: No Hx End Stage Renal Disease: No Hx Liver Disease: No Hx Insulin Dependent Diabetes: No Hx Non-Insulin Dependent Diabetes: No Hx Hypothyroidism: No Hx Hyperthyroidism: No - Hematic Hx Anemia: No Hx Sickle Cell Disease: No - Other Systems Hx Alcohol Use: No
--- NOTE | 2020-10-29 02:48 | Progress Note ---
Labor Epidural - Labor Epidural Start Time: 02:23 Stop Time: 02:40 Performed by:: JONATHAN NUNN Procedure: Patient is requesting epidural for labor and pain. H&P, labs were reviewed. Patient IDed, H&P reviewed, all questions and concerns were answered, and consent was signed. Timeout was performed at bedside. Patient in sitting position. Sterile prep and drape was performed. 3ml of 1% lidocaine skin wheal at L[3]- L [4]. 18-gauge AppSpotr epidural needle was advanced to loss of resistance with air technique 6cm. Negative CSF negative blood. Epidural catheter advanced to [11] centimeters. [negative] Aspiration [negative] test dose. Sterile dressing applied. Patient tolerated procedure.
[2020-10-29] MEDS ORDERED: fentaNYL-BUPIV 2 MCG/ML-0.125% 200 MCG/100 ML BAG EPIDURAL SCH (03:00)
[2020-10-29] MEDS ORDERED: OXYTOCIN DRIP 30 UNITS/500 ML BAG IV SCH (06:12)
--- NOTE | 2020-10-29 06:14 | Progress Note ---
Assessment and Plan Pt resting No c/o voiced SVE 8,100,-1 SROM fluid with exam, clear. Anticipate delivery Subjective - Subjective Date of service: 10/29/20 (comfortable with epidural) Principal diagnosis: IUP @ 36+3; labor Patient reports: movement normal, contractions Objective - Vital Signs Vital Signs: Vital Signs - 12hr 10/28/20 10/28/20 10/28/20 20:01 20:05 23:24 Temperature 97.6 F Pulse Rate 81 Respiratory 18 18 Rate Blood Pressure 128/66 Blood Pressure 128/66 [Right] O2 Sat by Pulse Oximetry 10/28/20 10/28/20 10/28/20 23:42 23:47 23:52 Temperature Pulse Rate 72 61 76 Respiratory Rate Blood Pressure Blood Pressure [Right] O2 Sat by Pulse 98 97 98 Oximetry 10/28/20 10/28/20 10/29/20 23:57 23:58 00:02 Temperature Pulse Rate 53 L 49 L 52 L Respiratory Rate Blood Pressure Blood Pressure [Right] O2 Sat by Pulse 98 92 97 Oximetry 10/29/20 10/29/20 10/29/20 00:07 00:12 00:17 Temperature Pulse Rate 55 L 53 L 62 Respiratory Rate Blood Pressure Blood Pressure [Right] O2 Sat by Pulse 97 96 96 Oximetry 10/29/20 10/29/20 10/29/20 00:22 00:27 00:32 Temperature Pulse Rate 69 55 L 76 Respiratory Rate Blood Pressure Blood Pressure [Right] O2 Sat by Pulse 99 99 97 Oximetry 10/29/20 10/29/20 10/29/20 00:37 00:42 00:47 Temperature Pulse Rate 56 L 64 88 Respiratory Rate Blood Pressure Blood Pressure [Right] O2 Sat by Pulse 97 99 99 Oximetry 10/29/20 10/29/20 10/29/20 00:52 00:57 01:02 Temperature Pulse Rate 54 L 58 L 68 Respiratory Rate Blood Pressure Blood Pressure [Right] O2 Sat by Pulse 98 96 98 Oximetry 10/29/20 10/29/20 10/29/20 01:07 01:12 01:17 Temperature Pulse Rate 78 87 71 Respiratory Rate Blood Pressure Blood Pressure [Right] O2 Sat by Pulse 98 97 97 Oximetry 10/29/20 10/29/20 10/29/20 01:22 01:27 01:54 Temperature Pulse Rate 68 84 78 Respiratory Rate Blood Pressure Blood Pressure [Right] O2 Sat by Pulse 97 100 95 Oximetry 10/29/20 10/29/20 10/29/20 01:59 02:04 02:09 Temperature Pulse Rate 87 106 H 87 Respiratory Rate Blood Pressure Blood Pressure [Right] O2 Sat by Pulse 98 97 99 Oximetry 10/29/20 10/29/20 10/29/20 02:14 02:15 02:18 Temperature Pulse Rate 87 92 H 99 H Respiratory Rate Blood Pressure 127/77 Blood Pressure [Right] O2 Sat by Pulse 97 89 Oximetry 10/29/20 10/29/20 10/29/20 02:19 02:23 02:24 Temperature Pulse Rate 82 86 96 H Respiratory Rate Blood Pressure 130/60 Blood Pressure [Right] O2 Sat by Pulse 99 99 Oximetry 10/29/20 10/29/20 10/29/20 02:25 02:27 02:29 Temperature Pulse Rate 92 H 76 104 H Respiratory Rate Blood Pressure 128/61 123/60 127/63 Blood Pressure [Right] O2 Sat by Pulse 99 Oximetry 10/29/20 10/29/20 10/29/20 02:31 02:33 02:34 Temperature Pulse Rate 82 90 75 Respiratory Rate Blood Pressure 113/66 119/72 Blood Pressure [Right] O2 Sat by Pulse 99 Oximetry 10/29/20 10/29/20 10/29/20 02:35 02:36 02:39 Temperature Pulse Rate 82 85 99 H Respiratory Rate Blood Pressure 119/69 125/58 122/61 Blood Pressure [Right] O2 Sat by Pulse 98 Oximetry 10/29/20 10/29/20 10/29/20 02:44 02:48 02:49 Temperature Pulse Rate 119 H 83 95 H Respiratory Rate Blood Pressure 133/77 120/61 Blood Pressure [Right] O2 Sat by Pulse 98 98 Oximetry 10/29/20 10/29/20 10/29/20 02:53 02:54 02:59 Temperature Pulse Rate 100 H 109 H 79 Respiratory Rate Blood Pressure 123/64 111/55 Blood Pressure [Right] O2 Sat by Pulse 98 98 Oximetry 10/29/20 10/29/20 10/29/20 03:04 03:09 03:14 Temperature Pulse Rate 122 H 102 H 90 Respiratory Rate Blood Pressure Blood Pressure [Right] O2 Sat by Pulse 99 98 98 Oximetry 10/29/20 10/29/20 10/29/20 03:19 03:20 03:24 Temperature Pulse Rate 74 81 75 Respiratory Rate Blood Pressure 111/60 Blood Pressure [Right] O2 Sat by Pulse 97 97 Oximetry 10/29/20 10/29/20 10/29/20 03:29 03:33 03:34 Temperature Pulse Rate 95 H 87 75 Respiratory Rate Blood Pressure 114/57 Blood Pressure [Right] O2 Sat by Pulse 97 98 Oximetry 10/29/20 10/29/20 10/29/20 03:39 03:44 03:49 Temperature Pulse Rate 106 H 75 76 Respiratory Rate Blood Pressure 120/61 Blood Pressure [Right] O2 Sat by Pulse 99 97 99 Oximetry 10/29/20 10/29/20 10/29/20 03:54 03:59 04:04 Temperature Pulse Rate 74 73 65 Respiratory Rate Blood Pressure Blood Pressure [Right] O2 Sat by Pulse 98 98 99 Oximetry 10/29/20 10/29/20 10/29/20 04:05 04:09 04:14 Temperature Pulse Rate 59 L 59 L 61 Respiratory Rate Blood Pressure 105/50 Blood Pressure [Right] O2 Sat by Pulse 97 97 Oximetry 10/29/20 10/29/20 10/29/20 04:18 04:19 04:24 Temperature Pulse Rate 61 61 63 Respiratory Rate Blood Pressure 96/54 Blood Pressure [Right] O2 Sat by Pulse 97 97 Oximetry 10/29/20 10/29/20 10/29/20 04:29 04:33 04:34 Temperature Pulse Rate 65 61 60 Respiratory Rate Blood Pressure 98/53 Blood Pressure [Right] O2 Sat by Pulse 97 97 Oximetry 10/29/20 10/29/20 10/29/20 04:39 04:44 04:49 Temperature Pulse Rate 71 67 65 Respiratory Rate Blood Pressure 97/52 Blood Pressure [Right] O2 Sat by Pulse 96 96 96 Oximetry 10/29/20 10/29/20 10/29/20 04:54 04:58 04:59 Temperature Pulse Rate 73 69 70 Respiratory Rate Blood Pressure Blood Pressure [Right] O2 Sat by Pulse 95 94 95 Oximetry 10/29/20 10/29/20 10/29/20 05:04 05:09 05:14 Temperature Pulse Rate 93 H 84 63 Respiratory Rate Blood Pressure 123/61 Blood Pressure [Right] O2 Sat by Pulse 96 97 97 Oximetry 10/29/20 10/29/20 10/29/20 05:19 05:24 05:29 Temperature Pulse Rate 68 62 61 Respiratory Rate Blood Pressure 109/60 Blood Pressure [Right] O2 Sat by Pulse 98 97 98 Oximetry 10/29/20 10/29/20 10/29/20 05:33 05:34 05:38 Temperature Pulse Rate 85 99 H 106 H Respiratory Rate Blood Pressure 109/59 Blood Pressure [Right] O2 Sat by Pulse 98 94 Oximetry 10/29/20 10/29/20 10/29/20 05:39 05:42 05:44 Temperature 98.1 F Pulse Rate 84 93 H 103 H Respiratory Rate Blood Pressure 154/69 Blood Pressure [Right] O2 Sat by Pulse 98 99 Oximetry 10/29/20 10/29/20 10/29/20 05:49 05:50 05:54 Temperature Pulse Rate 82 84 88 Respiratory Rate Blood Pressure 129/61 Blood Pressure [Right] O2 Sat by Pulse 98 98 Oximetry 10/29/20 10/29/20 10/29/20 05:59 06:04 06:05 Temperature Pulse Rate 88 101 H 82 Respiratory Rate Blood Pressure 118/58 Blood Pressure [Right] O2 Sat by Pulse 97 96 Oximetry 10/29/20 06:09 Temperature Pulse Rate 81 Respiratory Rate Blood Pressure Blood Pressure [Right] O2 Sat by Pulse 98 Oximetry - Exam Breasts: deferred Cardiovascular: Regular rate Lungs: Normal air movement Abdomen: Present: normal appearance, soft. Absent: distention, tenderness Uterus: Present: normal FHR: auscultation normal, category 1 Uterine Contraction Monitor Mode: External Cervical Dilatation: 8 (SROM clear) Cervical Effacement Percentage: 100 station: -1 Uterine Contraction Pattern: Regular Uterine Tone Measurement Phase: Resting Uterine Contraction Intensity: Mild Extremities: normal Deep Tendon Reflex Grade: Normal +2 - Labs Labs: Abnormal Labs 10/28/20 22:00 WBC 13.1 H RBC 3.28 L Hgb 9.1 L Hct 27.2 L Laboratory Results - last 24 hr 10/28/20 10/28/20 10/28/20 22:00 22:00 22:00 WBC 13.1 H RBC 3.28 L Hgb 9.1 L Hct 27.2 L MCV 83 MCH 28 MCHC 33 RDW 14.0 Plt Count 230 Syphilis IgG Antibody Nonreactive Blood Type O POSITIVE Antibody Screen Negative
--- NOTE | 2020-10-29 07:23 | Procedure Note ---
OB Delivery Note - Delivery Date of Delivery: 10/29/20 Manager Fraud: WILFRIDO AVERY Estimated blood loss: 300cc - Vaginal Delivery presentation: vertex Delivery position: OA Intrapartum events: labor-<37 weeks Delivery induction: none Delivery augmentation: rupture of membranes Delivery monitor: external FHT, external uterine Route of delivery: Delivery placenta: spontaneous Delivery cord: 3 umbilical vessels Episiotomy: none Delivery laceration: none Anesthesia: epidural Delivery comments: LIZET present in room aware of 36w delivery. Counts correct X 2. live born female over intact perineum OA Baby to mom's abdomen skin to skin. Cord blood obtained Placenta and membrane delivered noted poss area of retained POC Uterus explored quarter size piece removed with ring forcep. pitocin IVFs. Cytotec 800mcg GA placed. Remainder of placenta and membrane appear intact. 8/9, EBL 300, Wgt 6-4. Mom and baby remain LDR stable. - A at 1 minute: 8 at 5 minutes: 9 Infant Gender: Female (wgt 6-4 Jose)
[2020-10-29] MEDS ORDERED: diphenhydrAMINE 25 MG CAP PO PRN (08:00)
[2020-10-29] MEDS ORDERED: LANOLIN/ZINC/DIMETHICONE (LANSINOH) 7 GM TP PRN (08:00)
[2020-10-29] MEDS ORDERED: PROMETHAZINE 25 MG TAB PO PRN (08:00)
[2020-10-29] MEDS ORDERED: WITCH HAZEL/ GLYCERIN PAD TP PRN (08:00)
[2020-10-29] MEDS: IBUPROFEN 600 MG TAB PO SCH ×3 (08:46→22:39)
--- NOTE | 2020-10-29 12:18 | Event Note ---
Date: 10/29/20 (called urgently to pt's room by RN) Pt states she was sitting up to g clothes and had a sensation of pressure and passed a large "piece of meat". Pt passed the accessory lobe of the placenta. [facility]; succenturiate placenta. Lobe pale 10x4cm, appears intact. Minimal bleeding noted on pt. Will send to pathology with placenta. Pt aware, all questions addressed. Dr Graham made aware
--- NOTE | 2020-10-29 16:13 | Event Note ---
Date: 10/29/20 (call received from M/B RN) pt is Covid + precautions in place oncoming providers aware
[2020-10-29 18:19] LABS: Hematocrit 29.1 % (30.3-42.9); Hemoglobin 9.8 gm/dl (10.1-14.3)
--- NOTE | 2020-10-29 20:35 | Event Note ---
Date: 10/29/20 (Call from RN regarding COVID test) Received a call from RN that patient would like to speak with a provider regarding her COVID test that resulted this hospital admission. She states that her last admission she was given a positive test result but when she went to have another test it resulted as negative. She believes this is happening this admission. FOC went to [facility] and obtained self administered tests which resulted as negative. The test were sitting by the sink resulted as negative. They are asking for another test to be administered in the AM. Test ordered. Explained to patient that the test will not be repeated until the AM. Pt and FOC verbalized understanding.
[2020-10-29] MEDS ORDERED: MAGNESIUM HYDROXIDE (MOM) ORAL LIQD UDC PO PRN (22:00)
[2020-10-29] MEDS: DOCUSATE SODIUM 100 MG CAP PO SCH (22:36)
[2020-10-29] MEDS: FERROUS SULFATE 325 MG TAB PO SCH (22:38)
[2020-10-30] MEDS: IBUPROFEN 600 MG TAB PO SCH ×3 (02:00→11:20)
--- NOTE | 2020-10-30 07:59 | Discharge Summary ---
Providers - Providers Date of Admission: 10/28/20 22:05 Date of discharge: 10/30/20 (desires d/c home today) Attending physician: BILL CONRAD Primary care physician: BILL CONRAD Hospitalization Reason for admission: labor Condition: Good Pertinent studies: post delivery H&H 9.8/29.1, asymptomatic anemia d/t acute blood loss COVID test + Procedures: Hospital course: uncomplicated and course Disposition: DC-01 TO HOME OR SELFCARE Final Discharge Diagnosis (Prints w/discharge instructions): Time spent for discharge: 25 - Discharge Diagnoses (1) Lab test positive for detection of COVID-19 virus Status: Acute (2) Normal spontaneous vaginal delivery Status: Acute Core Measure Documentation - Palliative Care Palliative Care/ Comfort Measures: Not Applicable - Core Measures Any of the following diagnoses?: none Exam - Constitutional Vitals: Temp Pulse Resp BP Pulse Ox 98.6 F 69 18 112/60 97 10/29/20 23:03 10/29/20 23:03 10/29/20 23:03 10/29/20 23:03 10/29/20 23:03 General appearance: Present: no acute distress, well-nourished - EENT Eyes: Present: PERRL ENT: hearing intact, clear oral mucosa - Neck Neck: Present: supple, normal ROM - Respiratory Respiratory effort: normal Respiratory: bilateral: CTA - Cardiovascular Rhythm: regular Heart Sounds: Absent: rub, click - Extremities Extremities: pulses symmetrical, No edema Peripheral Pulses: within normal limits - Abdominal General gastrointestinal: Present: soft, non-tender, non-distended, normal bowel sounds Female genitourinary: Present: normal - Integumentary Integumentary: Present: clear, warm, dry - Musculoskeletal Musculoskeletal: gait normal, strength equal bilaterally - Psychiatric Psychiatric: appropriate mood/affect, intact judgment & insight - Neurologic Neurologic: CNII-XII intact, moves all extremities - Additional findings Additional findings: Lochia scant, fundus firm, breast feeding; no SOB, chest pain or fever Plan Activity: no restrictions Diet: regular Follow up with: BILL CONRAD MD [Primary Care Provider] - 12/01/20 (Congratulations! Please call [phone] to schedule your follow up appointment in 4 weeks. Call for any questions or concerns. ) Prescriptions: Ibuprofen [Motrin 800 MG tab] 800 mg PO Q8HR PRN #30 tablet PRN Reason: Pain
[2020-10-30] MEDS ORDERED: TETANUS,DIPH,PERTUSS(ACELL) VACCINE 0.5 ML SYRINGE IM ONE (08:00)
[2020-10-30] MEDS: DOCUSATE SODIUM 100 MG CAP PO SCH (09:09)
[2020-10-30] MEDS: FERROUS SULFATE 325 MG TAB PO SCH (09:10)
[2020-10-30] MEDS ORDERED: MEASLES, MUMPS & RUBELLA 12,500 UNIT/0.5 ML VACCINE SUB-Q ONE (10:00)
[2020-10-30 15:58] VITALS: BP 109/69
--- NOTE | 2020-10-30 16:33 | Post Anesthesia Evaluation ---
- Post Anesthesia Evaluation Patient Participated: Yes Airway Patent: Yes Stable Respiratory Function: Yes Nausea/Vomiting: No Temp > 96.8F: Yes Pain Manageable: Yes Adequeate Hydration: Yes Anesthesia Complications: No Block Receding Appropriately: Yes
== END 2020-10-30 13:25 | disposition home or self-care (01) | DRG 774 ==
LOC: TRG 19:35 → APU 19:39 → TRG 22:05 → LD 22:05 → OB 10-29 09:52
PROVIDERS: ADMIT Obstetrics & Gynecology; ATTEND Obstetrics & Gynecology
PROC: 10E0XZZ Delivery of Products of Conception, External Approach (ICD-10-PCS; principal; 2020-10-29)
PROC: 3E0R3BZ Introduction of Anesthetic Agent into Spinal Canal, Percutaneous Approach (ICD-10-PCS; 2020-10-29)
PROC: 00HU33Z Insertion of Infusion Device into Spinal Canal, Percutaneous Approach (ICD-10-PCS; 2020-10-29)
PROC: 3E0234Z Introduction of Serum, Toxoid and Vaccine into Muscle, Percutaneous Approach (ICD-10-PCS; 2020-10-30)
DX: O98.52 Other viral diseases complicating childbirth (principal); U07.1 COVID-19; O60.14X0 Preterm labor third trimester with preterm delivery third trimester, not applicable or unspecified; O99.334 Smoking (tobacco) complicating childbirth; O98.32 Other infections with a predominantly sexual mode of transmission complicating childbirth; F17.200 Nicotine dependence, unspecified, uncomplicated; B00.9 Herpesviral infection, unspecified; O43.193 Other malformation of placenta, third trimester; O99.02 Anemia complicating childbirth; D62 Acute posthemorrhagic anemia; Z3A.36 36 weeks gestation of pregnancy; Z37.0 Single live birth
CPT/HCPCS: 36415; 59025; 85014; 85018; 85027; 86592; 86850; 86900; 86901; 88305; 88307; 96360; G0378; A6250; J0595; J0702; J2405; J2590; J7120; U0003

== ENCOUNTER 2021-07-17 07:35 | Day surgery (SDC) | payer MEDICAID ==
[~2021-07-17 07:35] MED LIST: SODIUM CHLORIDE 0.9% 1000 ML 1,000 ML IV SCH
--- NOTE | 2021-07-17 08:24 | Anesthesia Day of Surgery ---
Anesthesia Day of Surgery - Day of Surgery Patient Examined: Yes Patient H&P Reviewed: Yes Patient is NPO: Yes
--- NOTE | 2021-07-17 08:25 | Anesthesia Consultation ---
Anesthesia Consult and Med Hx Date of service: 07/17/21 - Airway Anesthetic Teeth Evaluation: Good ROM Head & Neck: Adequate Mental/Hyoid Distance: Adequate Mallampati Class: Class II Intubation Access Assessment: Good - Pulmonary Exam CTA: Yes - Cardiac Exam Cardiac Exam: RRR - Pre-Operative Health Status ASA Pre-Surgery Classification: ASA2 Proposed Anesthetic Plan: MAC - Pulmonary Hx Smoking: Yes Hx Asthma: No COPD: No Hx Pneumonia: No Hx Sleep Apnea: No - Cardiovascular System Hx Hypertension: No Hx Coronary Artery Disease: No Hx Heart Attack/AMI: No Hx Angina: No - Central Nervous System Hx Seizures: Yes (Apr 2019) Hx Psychiatric Problems: Yes (BIPOLAR, DEPRESSION BUT NO MEDICATION) - Gastrointestinal Hx Gastroesophageal Reflux Disease: No - Endocrine Hx Renal Disease: No Hx End Stage Renal Disease: No Hx Liver Disease: No Hx Insulin Dependent Diabetes: No Hx Non-Insulin Dependent Diabetes: No Hx Hypothyroidism: No Hx Hyperthyroidism: No - Hematic Hx Anemia: No Hx Sickle Cell Disease: No - Other Systems Hx Alcohol Use: No
[2021-07-17] MEDS ORDERED: LIDOCAINE MPF (2%) 20 MG/1 ML VIAL 5 ML ONE (08:30)
[2021-07-17] MEDS ORDERED: propofoL 200 MG/20 ML VIAL IV ONE ×4 (08:31→09:58)
--- NOTE | 2021-07-17 10:21 | Operative Report ---
DATE OF SURGERY: 07/17/2021 PROCEDURE PERFORMED: EGD with biopsy. INDICATIONS: This is a 25-year-old white female who had been having nausea, vomiting and abdominal pain as well as changes in bowel habit that had prompted her to go to the ER. EGD was done to make sure there was not any significant upper GI pathology present accounting for her symptoms. DESCRIPTION OF PROCEDURE: Procedure was done after getting informed consent with MAC anesthesia. The instrument was passed through the hypopharynx into the esophagus, which showed some yskj-ie-dkjgadnk erosive esophagitis. Photodocumentation and biopsy was done to assess for the severity of the erosive esophagitis. Biopsy was also done from the midesophagus to rule out for eosinophilic esophagitis. Stomach showed gastritis and some mild gastroparesis. No ulcers were noted in the straight or the retroverted view. The pylorus was patent. The duodenum in the first and second portion appeared normal. Biopsy was done from the second part to rule out for possible celiac disease. Additional biopsy was done from the gastric antrum, gastric body and angular incisura to rule out for H. pylori and atrophic gastritis, with minimal bleeding. ASSESSMENT: Epigastric pain, nausea, vomiting. No peptic ulcer disease noted. Mild gastroparesis. Eiwh-cs-jyvatziy erosive esophagitis, gastritis. Rule out celiac disease, rule out eosinophilic esophagitis. PLAN: To treat the patient with PPI as well as Reglan and the patient will be asked to continue with Zofran if needed for the nausea, vomiting. Avoid aspirin and aspirin-related products and to follow up in the office in 1-2 weeks' time. If the patient is positive for H. pylori, the patient will be treated for that. A colonoscopy is to be done for further assessment of abdominal pain, changes in bowel habit. Procedure was done in the GI lab with assistance of the GI lab team, which included the GI nurse, the technology auditor and with assistance of anesthesia. TID: [id number] RECEIPT: [id number] LAURO/JAYDA
--- NOTE | 2021-07-17 10:23 | Operative Report ---
DATE OF SURGERY: 07/17/2021 PROCEDURE: Colonoscopy. INDICATIONS: This is a 25-year-old white female who has been having epigastric pain, nausea, vomiting, abdominal pain and changes in bowel habits that had prompted her to go to the ER. EGD did not show any peptic ulcer disease, but did show some mild gastroparesis and vadg-[id number] erosive esophagitis and gastritis. Colonoscopy was done to make sure there was not any additional lower GI pathology present. Initial rectal examination was unremarkable. DESCRIPTION OF PROCEDURE: Instrument was passed through the rectum onto the cecum, which was identified with ileocecal valve and appendiceal orifice. Visualization was good. The terminal ileum was intubated, showed normal mucosa. Biopsy was done to rule out for possible ileitis. Cecum, ascending colon, transverse colon showed normal mucosa. In the proximal descending colon, there were 2 areas that were probably lipoma. These were biopsied and the smaller one was also removed by snare polypectomy to rule out for possible adenoma. This had minimal bleeding. The biopsies also did some minimal bleeding. The remaining part of the descending colon and sigmoid showed normal mucosa and the rectum showed some minor internal hemorrhoid. ASSESSMENT: Abdominal pain, changes in bowel habits, rule out ileitis, rule out microscopic colitis, colon polyp versus lipoma, minor internal hemorrhoid. PLAN: To wait for the biopsy results and have the patient avoid aspirin and aspirin-related products for the next few days. Treat the patient with PPI, Reglan as well as Zofran if needed. Encourage the patient to take probiotics as well as anvk-ihh-szvclcc antidiarrhea medication and follow up in the office in 1-2 weeks' time. Procedure was done in the GI lab with assistance of the GI lab team, which included the GI nurse, the robotics testing technician and with assistance of anesthesia. TID: [id number] RECEIPT: [id number] LAURO/JAYDA
--- NOTE | 2021-07-17 10:24 | Procedure Note ---
Date of procedure: 07/17/21 Pre-op diagnosis: Abdominal Pain/ Nausea ad Vomiting/ Changes in Bowel Habit Post-op diagnosis: other (No Peptic Ulcer Disease/Mild gastroparesis/ Mild tomoderate Erosive Esophagitis/ Gastritis/ R/O Celiac Disease/ R/O Ileitis/ R/O Microscopic Colitis/Possible Lipoma (vs adenoma)/ Minor, Internal Hemorrhoids) Procedure: EGD with Biopsy/ Colonoscopy with cold Biopsy and Cold Snae Polypectomy Anesthesia: MAC Surgeon: CHITRA BUITRAGO Estimated blood loss: minimal Pathology: list Specimen disposition: to lab Condition: stable Disposition: same day (Avoid aspirin and NSAID for 5 days; treat with OTC Probiotic and OTC anti-diarrhea medication, PPI,prn Reglan and Zofran. Avoid aspirin and NSAID for 5 days; F/U in 1 to 2weeks ([phone]).)
--- NOTE | 2021-07-17 10:33 | Post Anesthesia Evaluation ---
- Post Anesthesia Evaluation Patient Participated: Yes Airway Patent: Yes Stable Respiratory Function: Yes Nausea/Vomiting: No Temp > 96.8F: Yes Pain Manageable: Yes Adequeate Hydration: Yes Anesthesia Complications: No
[2021-07-17 11:28] VITALS: BP 113/76
== END 2021-07-17 07:36 | disposition home or self-care (01) ==
LOC: GIO 07:35
DX: R19.4 Change in bowel habit (principal); R10.9 Unspecified abdominal pain; R10.13 Epigastric pain; K64.8 Other hemorrhoids; K31.89 Other diseases of stomach and duodenum; K63.89 Other specified diseases of intestine; K63.5 Polyp of colon; F17.210 Nicotine dependence, cigarettes, uncomplicated; F31.9 Bipolar disorder, unspecified; Z72.89 Other problems related to lifestyle; Z98.890 Other specified postprocedural states
CPT/HCPCS: 43239; 45380; 45385; 81025; 88305; 88342; J2704; J7030